=== PATIENT | female | born 1965 | race Caucasian/White ===

== ENCOUNTER 2017-05-29 07:49 | Day surgery (SDC) | payer OTHER ==
[~2017-05-29] VITALS: Ht 167.6 cm; Wt 61.4 kg
[~2017-05-29 07:49] MED LIST: Actigall300 MG PO; CITRACAL PO; CYAN500 PO; Calcium Carbon650 MG PO; ERGO400 PO; FERR325 PO; FIBE4P PO; FURO40 PO; Fergon240 M1 PO; Hair, Skin & N1 EACH PO; LACT10SY PO; LASIX PO; MULVITMIND PO; Micro-K10 MEQ PO; OMEP20ER PO; ONDA4ODT SL; Omeprazole20 M1 PO; RANI150 PO; RIFA300 PO; RIFA550T2 PO; SIMV40 PO; SPIR50 PO; URSO300 PO; VIT D; VITA25000 PO; VITAMIN A10000 UNI2 SL; VITAMIN B125000 MCG PO; VITAMIN D2000 UNIT PO; VITAMIN D33000 UNIT PO; [UNRECOGNIZED DRUG - OTHER] PO
[2017-05-29] MEDS ORDERED: Ferrous Sulfat325 M2 PO (08:17)
== END 2017-05-29 09:43 | disposition home or self-care (01) ==
LOC: ORSCSDS 07:49
PROVIDERS: Internal Medicine Gastroenterology
PROC: 0D568ZZ Destruction of Stomach, Via Natural or Artificial Opening Endoscopic (ICD-10-PCS; principal; 2017-05-29 09:00)
DX: K31.819 Angiodysplasia of stomach and duodenum without bleeding (principal); K74.3 Primary biliary cirrhosis; I85.10 Secondary esophageal varices without bleeding; K76.6 Portal hypertension; K31.89 Other diseases of stomach and duodenum; D50.9 Iron deficiency anemia, unspecified; Z79.899 Other long term (current) drug therapy
CPT/HCPCS: J0330; J1980; J2405; J7120

== ENCOUNTER 2018-05-24 06:57 | Day surgery (SDC) | payer OTHER ==
[~2018-05-24 06:57] MED LIST changes: +Ferrous Sulfat325 M2 PO
[2018-05-24] MEDS ORDERED: Aldactone100 MG PO (09:05)
[2018-05-24] MEDS ORDERED: Vitamin A10000 UNIT PO (09:07)
[2018-05-24] MEDS ORDERED: ZINC PICOLINATE PO (09:08)
--- NOTE | 2018-05-24 11:10 | NUR ---
HYPOTENSION: DISCUSSED BP WITH PT. RECOMMENDED THAT SHE TALK TO HER DR RE THE DIURETICS THAT SHE IS TAKING R/T HER BP. RECOMMENDED THAT SHE MONITOR HER BP AT HOME AND TO REPORT TO HER DR.
== END 2018-05-25 13:11 | disposition home or self-care (01) ==
LOC: ATC 06:57
DX: D64.9 Anemia, unspecified (principal)
CPT/HCPCS: 36415; 36430; 86850; 86870; 86900; 86901; 86902; 86920; J7050; P9016

== ENCOUNTER 2018-10-04 00:16 | Day surgery (SDC) | payer OTHER ==
[~2018-10-04 00:16] MED LIST changes: +Aldactone100 MG PO; +Vitamin A10000 UNIT PO; +ZINC PICOLINATE PO
== END 2018-10-04 15:45 | disposition home or self-care (01) ==
LOC: ATC 00:16
PROC: 30233N1 Transfusion of Nonautologous Red Blood Cells into Peripheral Vein, Percutaneous Approach (ICD-10-PCS; principal; 2018-10-04)
DX: D50.9 Iron deficiency anemia, unspecified (principal); K74.60 Unspecified cirrhosis of liver; K73.9 Chronic hepatitis, unspecified; K21.9 Gastro-esophageal reflux disease without esophagitis; R76.0 Raised antibody titer; Z79.899 Other long term (current) drug therapy
CPT/HCPCS: 36415; 36430; 86850; 86870; 86900; 86901; 86902; 86922; J7050; P9016

== ENCOUNTER 2020-10-20 07:41 | Day surgery (SDC) | payer OTHER, MEDICARE ==
[~2020-10-20 07:41] MED LIST changes: +ALDACTONE100 M1 PO; +POTCHL20ER PO; +VITAMIN A PO; -VITAMIN D2000 UNIT PO; -Vitamin A10000 UNIT PO; +Vitamin D2000 UNIT PO; +ZOCOR20 MG PO
== END 2020-10-20 09:59 | disposition home or self-care (01) ==
LOC: ATC 07:41
DX: K74.5 Biliary cirrhosis, unspecified (principal); D50.0 Iron deficiency anemia secondary to blood loss (chronic); M81.0 Age-related osteoporosis without current pathological fracture; D61.818 Other pancytopenia; K72.90 Hepatic failure, unspecified without coma
CPT/HCPCS: 36415; 36430; 86850; 86900; 86901; 86902; 86922; J7050; P9016

== ENCOUNTER 2021-03-05 11:30 | Inpatient (IN) | payer OTHER, MEDICARE ==
[~2021-03-05] VITALS: Ht 165.1 cm; Wt 74.0 kg
[2021-03-05 12:22] LABS: BASOPHILS ABSOLUTE AUTO 0.01 K/mm3 (0.00-0.23); BASOPHILS PERCENT AUTO 0 % (0-2); EOSINOPHILS ABSOLUTE AUTO 0.22 K/mm3 (0.00-0.68); EOSINOPHILS PERCENT AUTO 8 % (0-6); IMMATURE GRAN ABSOLUTE AUTO 0.01 K/mm3 (0.00-0.10); IMMATURE GRAN PERCENT AUTO 0 % (0-1); LYMPHOCYTES ABSOLUTE AUTO 0.86 K/mm3 (0.84-5.20); LYMPHOCYTES PERCENT AUTO 31 % (21-46); MONOCYTES ABSOLUTE AUTO 0.34 K/mm3 (0.16-1.47); MONOCYTES PERCENT AUTO 12 % (4-13); Mean Corpuscular HGB 22.6 pg (26.0-34.0); Mean Corpuscular HGB Conc 26.9 g/dL (31.5-36.5); Mean Corpuscular Volume 84 fL (80-100); NEUTROPHILS ABSOLUTE AUTO 1.35 K/mm3 (1.96-9.15); NEUTROPHILS PERCENT AUTO 48 % (41-73); NRBC ABSOLUTE 0.02 K/mm3 (0.00-0.02); NRBC Auto 0.7 /100 WBC (0.0-0.2); Platelet Count 57 K/mm3 (150-400); RDW Coefficient Variation 19.2 % (11.7-14.2); RDW Standard Deviation 57.8 fL (35.1-46.3); Red Blood Cell Count 1.99 M/mm3 (3.80-5.20); White Blood Cell Count 2.79 K/mm3 (4.00-11.30)
[2021-03-05 13:00] LABS: Hematocrit 16.7 % (33.0-51.0); Hemoglobin 4.5 g/dL (11.5-16.0)
[2021-03-05 13:13] LABS: Alanine Aminotransfer (ALT/SGP 42 U/L (12-78); Albumin, Blood 1.7 g/dL (3.4-5.0); Albumin/Globulin Ratio 0.7 (0.8-1.8); Alk Phos 148 U/L (50-136); Anion Gap 7 mmol/L (6-16); Aspartate Aminotrans (AST/SGOT 57 U/L (12-37); Bilirubin, Total 2.1 mg/dL (0.1-1.0); Blood Urea Nitrogen 10 mg/dL (8-24); Bun/Creatinine Ratio 17.2 (12.0-20.0); CO2, Blood 23 mmol/L (21-32); Calcium, Blood 7.1 mg/dL (8.5-10.1); Chloride, Blood 111 mmol/L (98-108); Creatinine, Blood 0.58 mg/dL (0.40-1.00); Globulin, Blood 2.6 g/dL (2.2-4.0); Glomerular Filtration Rate >60 (60-); Glucose, Blood 116 mg/dL (70-99); Potassium, Blood 3.4 mmol/L (3.5-5.5); Sodium, Blood 141 mmol/L (136-145); Total Protein, Blood 4.3 g/dL (6.4-8.2)
[2021-03-05 13:56] LABS: International Normalized Ratio 1.72; Prothrombin Time Results 17.4 Sec (9.7-11.5)
--- NOTE | 2021-03-06 05:07 | NUR ---
SHIFT SUMMARY PT ADMITTED FROM ED FOR SEVERE ANEMIA RELATED TO A POSSIBLE GI BLEED WITH VARICES. PT HAS A HX OF A HEPATIC RELATED AUTOIMMUNE DISEASE AND IS ON THE LIVER TRANSPLAANT LIST. SHE RECEIVED 3 UNITS OF PRBC'S THIS SHIFT, WHICH SHE TOLERATED WELL. PT TO HAVE AN EGD TODAY AT AROUND 11. VSS. WILL REPORT TO DAY SHIFT RN.
[2021-03-06 05:27] LABS: Anion Gap 7 mmol/L (6-16); Blood Urea Nitrogen 9 mg/dL (8-24); Bun/Creatinine Ratio 15.5 (12.0-20.0); CO2, Blood 21 mmol/L (21-32); Calcium, Blood 6.9 mg/dL (8.5-10.1); Chloride, Blood 115 mmol/L (98-108); Creatinine, Blood 0.58 mg/dL (0.40-1.00); Glomerular Filtration Rate >60 (60-); Glucose, Blood 105 mg/dL (70-99); Magnesium, Blood 1.7 mg/dL (1.6-2.4); Potassium, Blood 4.4 mmol/L (3.5-5.5); Sodium, Blood 143 mmol/L (136-145)
[2021-03-06 06:19] LABS: BASOPHILS ABSOLUTE AUTO 0.04 K/mm3 (0.00-0.23); BASOPHILS PERCENT AUTO 1 % (0-2); EOSINOPHILS ABSOLUTE AUTO 0.28 K/mm3 (0.00-0.68); EOSINOPHILS PERCENT AUTO 8 % (0-6); Hemoglobin 8.6 g/dL (11.5-16.0); IMMATURE GRAN ABSOLUTE AUTO 0.01 K/mm3 (0.00-0.10); IMMATURE GRAN PERCENT AUTO 0 % (0-1); LYMPHOCYTES ABSOLUTE AUTO 0.89 K/mm3 (0.84-5.20); LYMPHOCYTES PERCENT AUTO 26 % (21-46); MONOCYTES ABSOLUTE AUTO 0.45 K/mm3 (0.16-1.47); MONOCYTES PERCENT AUTO 13 % (4-13); Mean Corpuscular HGB 26.1 pg (26.0-34.0); Mean Corpuscular HGB Conc 31.9 g/dL (31.5-36.5); Mean Corpuscular Volume 82 fL (80-100); NEUTROPHILS ABSOLUTE AUTO 1.72 K/mm3 (1.96-9.15); NEUTROPHILS PERCENT AUTO 51 % (41-73); RDW Coefficient Variation 16.7 % (11.7-14.2); RDW Standard Deviation 49.1 fL (35.1-46.3); White Blood Cell Count 3.39 K/mm3 (4.00-11.30)
[2021-03-06 06:39] LABS: Platelet Count 50 K/mm3 (150-400)
[2021-03-06 07:32] LABS: Influenza A, PCR NEGATIVE (NEGATIVE); Influenza B, PCR NEGATIVE (NEGATIVE); Resp Syncytial Virus, PCR NEGATIVE (NEGATIVE); SARS-Cov-2 (COVID-19) PCR, MMC NEGATIVE (NEGATIVE)
--- NOTE | 2021-03-06 10:18 | NUR ---
INTO [facility] VIA GURNEY FROM [facility]. History, Chart, Medications and Allergies reviewed before start of procedure.Patient confirms NPO status and agrees with scheduled surgery. Lungs clear T/O to Auscultation.
--- NOTE | 2021-03-06 10:29 | NUR ---
03/06/21 1029 Laurel Muñoz History, Chart, Medications and Allergies reviewed before start of procedure. Patient confirms NPO status and agrees with scheduled surgery. 3-LEAD EKG REVIEWED WITH PHYSICIAN PRIOR TO START OF PROCEDURE. MONITOR INTACT WITH CONTINUOUS PULSE OXIMETRY AND INTERMITTENT BP. PATIENT DETERMINED TO BE ASA APPROPRIATE FOR PROPOFOL SEDATION PRIOR TO START OF PROCEDURE BY
--- NOTE | 2021-03-06 15:02 | NUR ---
SHIFT SUMMARY PT RESTING QUIETLY AT START OF SHIFT. NPO FOR UPPER EGD THIS AM. PT UP WITH SBA TO BTHRM D/T IV PUMP PRIOR TO PROCEDURE. PT REPORTED BM WITH NO BLOOD IN STOOL. 0945 PT TAKEN DOWN FOR EGD. TOLERATED WELL. NEW ORDERS PLACE WHEN COMPLETE. DIET ADVANCED TO FULL LIQUID FOR DINNER. TOLERATED CL LUNCH. SANDOSTATIN D/C'D AFTER EGD. PT TO F/U WITH DR PENALOZA OUTPT IN ONE MONTH. PT NOW INDEPENDENT IN . VISITOR TO AFTER PROCEDURE. PT RESTING QUIETLY. CALL LT IN REACH. NO FURTHER NEEDS AT THIS TIME.
[2021-03-06 16:08] LABS: BASOPHILS ABSOLUTE AUTO 0.04 K/mm3 (0.00-0.23); BASOPHILS PERCENT AUTO 1 % (0-2); EOSINOPHILS ABSOLUTE AUTO 0.27 K/mm3 (0.00-0.68); EOSINOPHILS PERCENT AUTO 6 % (0-6); Hematocrit 33.4 % (33.0-51.0); Hemoglobin 10.2 g/dL (11.5-16.0); IMMATURE GRAN ABSOLUTE AUTO 0.02 K/mm3 (0.00-0.10); IMMATURE GRAN PERCENT AUTO 0 % (0-1); LYMPHOCYTES ABSOLUTE AUTO 0.97 K/mm3 (0.84-5.20); LYMPHOCYTES PERCENT AUTO 21 % (21-46); MONOCYTES PERCENT AUTO 11 % (4-13); Mean Corpuscular HGB 25.8 pg (26.0-34.0); Mean Corpuscular HGB Conc 30.5 g/dL (31.5-36.5); Mean Corpuscular Volume 84 fL (80-100); NEUTROPHILS ABSOLUTE AUTO 2.79 K/mm3 (1.96-9.15); NEUTROPHILS PERCENT AUTO 61 % (41-73); NRBC ABSOLUTE 0.02 K/mm3 (0.00-0.02); NRBC Auto 0.4 /100 WBC (0.0-0.2); Platelet Count 61 K/mm3 (150-400); RDW Coefficient Variation 17.2 % (11.7-14.2); RDW Standard Deviation 52.5 fL (35.1-46.3); Red Blood Cell Count 3.96 M/mm3 (3.80-5.20); White Blood Cell Count 4.59 K/mm3 (4.00-11.30)
[2021-03-06] MEDS ORDERED: SUCRALFATE PO (16:57)
--- NOTE | 2021-03-06 18:01 | NUR ---
DR TATE RETURNED TO SEE PT AND REPORT PT CLEAR FOR D/C. ORDERS PLACED. MEDS FAXED TO [facility]. D/C INSTRUCTIONS REVIEWED WITH PT AND ; VERBALIZED UNDERSTANDING. PT ASSISTED OUT TO HUSBANDS CAR VIA W/C.
== END 2021-03-06 17:33 | disposition home or self-care (01) | DRG 378 ==
LOC: ER 11:30 → ERHOLD 11:31 → MEDS 11:31
PROVIDERS: Emergency Medicine; Internal Medicine Gastroenterology; Physician Assistant; ADMIT Internal Medicine
PROC: 30233N1 Transfusion of Nonautologous Red Blood Cells into Peripheral Vein, Percutaneous Approach (ICD-10-PCS; 2021-03-06)
PROC: 0W3P8ZZ Control Bleeding in Gastrointestinal Tract, Via Natural or Artificial Opening Endoscopic (ICD-10-PCS; principal; 2021-03-06 10:30)
DX: K31.811 Angiodysplasia of stomach and duodenum with bleeding (principal); D61.818 Other pancytopenia; K74.60 Unspecified cirrhosis of liver; D50.0 Iron deficiency anemia secondary to blood loss (chronic); K74.5 Biliary cirrhosis, unspecified; Z20.822 Contact with and (suspected) exposure to COVID-19; E87.6 Hypokalemia; E78.5 Hyperlipidemia, unspecified; E83.110 Hereditary hemochromatosis; Z88.8 Allergy status to other drugs, medicaments and biological substances; Z90.710 Acquired absence of both cervix and uterus; Z98.51 Tubal ligation status; Z90.49 Acquired absence of other specified parts of digestive tract; Z98.890 Other specified postprocedural states; Z79.899 Other long term (current) drug therapy
CPT/HCPCS: 0241U; 36415; 36430; 76700; 80048; 80053; 82140; 82330; 83735; 85025; 85610; 86850; 86900; 86901; 86902; 86922; 93005; 93010; 96365; 96366; 96375; 99285-25; A9270; C9113; G0378; J0610; J2354; J2704; J7030; J7050; J7120; P9016

== ENCOUNTER 2021-04-26 13:34 | Day surgery (SDC) | payer OTHER, MEDICARE ==
[~2021-04-26] VITALS: Ht 165.1 cm; Wt 66.8 kg
[~2021-04-26 13:34] MED LIST changes: +SUCRALFATE PO
== END 2021-04-26 15:26 | disposition home or self-care (01) ==
LOC: ORSCSDS 13:34
PROVIDERS: Internal Medicine Gastroenterology
PROC: 0W3P8ZZ Control Bleeding in Gastrointestinal Tract, Via Natural or Artificial Opening Endoscopic (ICD-10-PCS; principal; 2021-04-26 14:45)
DX: D50.9 Iron deficiency anemia, unspecified (principal); K31.811 Angiodysplasia of stomach and duodenum with bleeding; K74.60 Unspecified cirrhosis of liver; D64.9 Anemia, unspecified; Z79.899 Other long term (current) drug therapy
CPT/HCPCS: J2704; J7120

== ENCOUNTER 2021-06-07 10:47 | Day surgery (SDC) | payer OTHER, MEDICARE ==
[~2021-06-07] VITALS: Ht 165.1 cm; Wt 66.6 kg
== END 2021-06-07 13:05 | disposition home or self-care (01) ==
LOC: ORSCSDS 10:47
PROVIDERS: Internal Medicine Gastroenterology
PROC: 0W3P8ZZ Control Bleeding in Gastrointestinal Tract, Via Natural or Artificial Opening Endoscopic (ICD-10-PCS; principal; 2021-06-07 12:00)
DX: D50.9 Iron deficiency anemia, unspecified (principal); K31.819 Angiodysplasia of stomach and duodenum without bleeding; K74.60 Unspecified cirrhosis of liver; Z79.899 Other long term (current) drug therapy
CPT/HCPCS: J2704; J7120

== ENCOUNTER 2021-06-18 06:39 | Day surgery (SDC) | payer OTHER, MEDICARE ==
[~2021-06-18] VITALS: Ht 165.1 cm; Wt 68.0 kg
--- NOTE | 2021-06-18 12:15 | NUR ---
PATIENT VEBALIZED UNDERSTANDING OF DISCHARGE INSTRUCTIONS AND PRECAUTIONS. IV SITE DCED BY YULISSA JOHNSON RN. TR BAND REMOVED AND WRIST BOARD PLACED. SITE SOFT AND NONTENDER. NO HEMATOMA. NO BLEEDING. RIGHT VENOUS DRESSING UNCHANGED AND SITE STABLE. DRESSING CHANGED BY TREMAYNE JOHNSON RN. NO FURTHER QUESTIONS. PATIENT DISCHARGED BY YULISSA HERNÁNDEZ.
== END 2021-06-18 12:00 | disposition home or self-care (01) ==
LOC: MHTC 06:39
DX: I27.20 Pulmonary hypertension, unspecified (principal); R01.0 Benign and innocent cardiac murmurs; I20.9 Angina pectoris, unspecified; Z88.8 Allergy status to other drugs, medicaments and biological substances
CPT/HCPCS: 76937; 93456; 99152; 99153; C1769; C1887; C1894; J1644; J2250; J3010; J7030; J7050; Q9967

== ENCOUNTER 2021-08-13 09:43 | Day surgery (SDC) | payer OTHER, MEDICARE ==
[~2021-08-13] VITALS: Ht 165.1 cm; Wt 65.0 kg
[2021-08-13] MEDS ORDERED: FURO40 PO (10:06)
[2021-08-13] MEDS ORDERED: SPIR50 PO (10:07)
[2021-08-13] MEDS ORDERED: SILDENAFIL CITR20 MG PO (10:08)
--- NOTE | 2021-08-13 10:50 | NUR ---
Ambulatory in Day Surgery History, Chart, Medications and Allergies reviewed before start of procedure. Pre-Op teaching done. Pt verbalizes understanding. Patient States Post-Procedure ride home has been arranged.
--- NOTE | 2021-08-13 10:53 | NUR ---
08/13/21 1053 Norma Luciano History, Chart, Medications and Allergies reviewed before start of procedure. LIDOCAINE SPRAY 2% TO THROAT PRIOR TO PROCEDURE CONNER RAMIREZ PROVIDING ANESTHESIA,SEE RECORDS
--- NOTE | 2021-08-13 12:59 | NUR ---
Patient up to Ambulate independently. Gait steady. Discharge instructions reviewed with patient. Patient verbalizes understanding. Copy given to patient to take home. Patient States Post-Procedure ride home has been arranged. Discharged via wheelchair to private car for ride home. ALL BELONGINGS RETURNED TO PATIENT.
== END 2021-08-13 23:25 | disposition home or self-care (01) ==
LOC: ORSCMMR 09:43 → ORD 10:45 → ORSCMMR 23:25
PROVIDERS: Internal Medicine Gastroenterology
PROC: 0W3P8ZZ Control Bleeding in Gastrointestinal Tract, Via Natural or Artificial Opening Endoscopic (ICD-10-PCS; principal; 2021-08-13 10:45)
DX: K31.811 Angiodysplasia of stomach and duodenum with bleeding (principal); K74.3 Primary biliary cirrhosis; D62 Acute posthemorrhagic anemia; I27.20 Pulmonary hypertension, unspecified; K21.9 Gastro-esophageal reflux disease without esophagitis; Z79.899 Other long term (current) drug therapy
CPT/HCPCS: J2370; J2704; J3010; J7120

== ENCOUNTER 2021-11-02 14:03 | Day surgery (SDC) | payer OTHER, MEDICARE ==
[2021-11-01 08:42] LABS: BASOPHILS ABSOLUTE AUTO 0.01 K/mm3 (0.00-0.23); BASOPHILS PERCENT AUTO 0 % (0-2); EOSINOPHILS ABSOLUTE AUTO 0.15 K/mm3 (0.00-0.68); EOSINOPHILS PERCENT AUTO 7 % (0-6); Hematocrit 26.3 % (33.0-51.0); Hemoglobin 7.8 g/dL (11.5-16.0); IMMATURE GRAN PERCENT AUTO 0 % (0-1); LYMPHOCYTES ABSOLUTE AUTO 0.58 K/mm3 (0.84-5.20); LYMPHOCYTES PERCENT AUTO 25 % (21-46); MONOCYTES ABSOLUTE AUTO 0.29 K/mm3 (0.16-1.47); MONOCYTES PERCENT AUTO 13 % (4-13); Mean Corpuscular HGB 25.1 pg (26.0-34.0); Mean Corpuscular HGB Conc 29.7 g/dL (31.5-36.5); Mean Corpuscular Volume 85 fL (80-100); NEUTROPHILS ABSOLUTE AUTO 1.27 K/mm3 (1.96-9.15); NEUTROPHILS PERCENT AUTO 55 % (41-73); Platelet Count 78 K/mm3 (150-400); RDW Coefficient Variation 19.3 % (11.7-14.2); RDW Standard Deviation 59.3 fL (35.1-46.3); Red Blood Cell Count 3.11 M/mm3 (3.80-5.20)
[2021-11-01 08:55] LABS: Albumin, Blood 2.4 g/dL (3.4-5.0); Albumin/Globulin Ratio 0.9 (0.8-1.8); Bilirubin, Total 2.7 mg/dL (0.1-1.0); Bun/Creatinine Ratio 20.2 (12.0-20.0); Creatinine, Blood 0.64 mg/dL (0.40-1.00); Globulin, Blood 2.8 g/dL (2.2-4.0); Total Protein, Blood 5.2 g/dL (6.4-8.2)
[2021-11-01 09:19] LABS: Percent Saturation 13.2 % (15.0-50.0)
[2021-11-01 09:39] LABS: International Normalized Ratio 1.46
[~2021-11-02 14:03] MED LIST changes: +SILDENAFIL CITR20 MG PO
== END 2021-11-02 16:13 | disposition home or self-care (01) ==
LOC: ATC 14:03
PROVIDERS: Internal Medicine; Registered Nurse Oncology
DX: K74.3 Primary biliary cirrhosis (principal); Z88.8 Allergy status to other drugs, medicaments and biological substances; Z86.16 Personal history of COVID-19
CPT/HCPCS: 36415; 80053; 82105; 82728; 83540; 83550; 85025; 85610; 86850; 86900; 86901; 86902; 86920; J7040; P9016

== ENCOUNTER 2021-11-03 12:39 | Day surgery (SDC) | payer OTHER, MEDICARE ==
[~2021-11-03] VITALS: Ht 165.1 cm; Wt 66.7 kg
--- NOTE | 2021-11-03 13:27 | NUR ---
11/03/21 1327 Marcella Mcdonald TWO ATTEMPTS AT IV. FIRST ATTEMPT AT IV BY MA IN RIGHT HAND INFILTRATED. SECOND ATTEMPT AT IV BY RN IN LEFT HAND SUCCESSFUL.
== END 2021-11-03 14:13 | disposition home or self-care (01) ==
LOC: ORSCSDS 12:39
PROVIDERS: Internal Medicine Gastroenterology
PROC: 0D578ZZ Destruction of Stomach, Pylorus, Via Natural or Artificial Opening Endoscopic (ICD-10-PCS; principal; 2021-11-03 13:45)
DX: K74.3 Primary biliary cirrhosis (principal); D50.0 Iron deficiency anemia secondary to blood loss (chronic); K31.811 Angiodysplasia of stomach and duodenum with bleeding; K76.6 Portal hypertension; K31.89 Other diseases of stomach and duodenum; I67.4 Hypertensive encephalopathy; R18.8 Other ascites; Z79.899 Other long term (current) drug therapy
CPT/HCPCS: J2704; J7120

== ENCOUNTER 2022-02-21 11:22 | Inpatient (IN) | payer OTHER, MEDICARE ==
[~2022-02-21] VITALS: Ht 165.1 cm; Wt 74.1 kg
[~2022-02-21 11:22] MED LIST changes: +FURO20 PO; -Omeprazole20 M1 PO; +VITAMIN D5000 UNIT PO; -Vitamin D2000 UNIT PO; -ZOCOR20 MG PO; +Zocor40 MG PO
[2022-02-21 12:15] LABS: BASOPHILS ABSOLUTE AUTO 0.03 K/mm3 (0.00-0.23); BASOPHILS PERCENT AUTO 1 % (0-2); EOSINOPHILS ABSOLUTE AUTO 0.07 K/mm3 (0.00-0.68); EOSINOPHILS PERCENT AUTO 1 % (0-6); Hematocrit 21.7 % (33.0-51.0); Hemoglobin 6.6 g/dL (11.5-16.0); IMMATURE GRAN ABSOLUTE AUTO 0.01 K/mm3 (0.00-0.10); IMMATURE GRAN PERCENT AUTO 0 % (0-1); LYMPHOCYTES ABSOLUTE AUTO 0.62 K/mm3 (0.84-5.20); LYMPHOCYTES PERCENT AUTO 11 % (21-46); MONOCYTES ABSOLUTE AUTO 0.68 K/mm3 (0.16-1.47); MONOCYTES PERCENT AUTO 12 % (4-13); Mean Corpuscular HGB Conc 30.4 g/dL (31.5-36.5); Mean Corpuscular Volume 82 fL (80-100); NEUTROPHILS ABSOLUTE AUTO 4.35 K/mm3 (1.96-9.15); NEUTROPHILS PERCENT AUTO 76 % (41-73); Platelet Count 98 K/mm3 (150-400); Red Blood Cell Count 2.64 M/mm3 (3.80-5.20); White Blood Cell Count 5.76 K/mm3 (4.00-11.30)
[2022-02-21 12:20] LABS: Mean Platelet Volume 12.5 fL (9.1-12.4)
[2022-02-21 12:33] LABS: Albumin, Blood 1.9 g/dL (3.4-5.0); Albumin/Globulin Ratio 0.7 (0.8-1.8); Bilirubin, Total 4.7 mg/dL (0.1-1.0); Bun/Creatinine Ratio 22.5 (12.0-20.0); Calcium, Blood 7.3 mg/dL (8.5-10.1); Creatinine, Blood 0.8 mg/dL (0.40-1.00); Globulin, Blood 2.6 g/dL (2.2-4.0); Total Protein, Blood 4.5 g/dL (6.4-8.2)
[2022-02-21 13:42] LABS: International Normalized Ratio 1.46
[2022-02-21] MEDS ORDERED: HYDHCL25 PO (20:55)
[2022-02-21] MEDS ORDERED: OPSUMIT10 MG PO (20:56)
--- NOTE | 2022-02-21 22:33 | NUR ---
ADMIT NOTE HANDOFF RECEIVED FROM LIBRARY ACQUISITIONS TECHNICIAN SILVIA. PT ARRIVED TO FLOOR VIA GURNEY. TELEMETRY IN PLACE: NSR @ 71 BPM. HS MEDICATION GIVEN ORDERED. PT ORIENTED TO UNIT. CALL BUTTON WITHIN REACH. STRICT I&O'S. STANDING ACCURATE WEIGHT TAKEN ON ADMIT. CALLED HOSPITALIST TO INFORM HIM OF HYPOTENSION. 1800 LASIX RX HELD PER HOSPITALIST ORDER.
--- NOTE | 2022-02-22 04:28 | NUR ---
SHIFT SUMMARY ADMITTED FOR ACUTE ON CHRONIC CHF. DNR CODE. PLAN IS TO DIURESE. TELEMETRY: NSR @ 80 BPM. STRICT I&O'S. 3+ BLE EDEMA NOTED. HYPOTENSION NOTED, SEE PREVIOUS NOTE. HX: CIRRHOSIS, PULMONARY HTN, ESOPHAGEAL VARICES, ASCITES, HEMOCHROMOTOSIS, IRON DEFICIENCY. SHE IS INDEPENDENT IN ROOM. SHE IS ON RA. SHE IS A&O X4
[2022-02-22 05:04] LABS: BASOPHILS ABSOLUTE AUTO 0.01 K/mm3 (0.00-0.23); BASOPHILS PERCENT AUTO 0 % (0-2); EOSINOPHILS ABSOLUTE AUTO 0.07 K/mm3 (0.00-0.68); EOSINOPHILS PERCENT AUTO 2 % (0-6); Hematocrit 19.9 % (33.0-51.0); Hemoglobin 6.2 g/dL (11.5-16.0); IMMATURE GRAN ABSOLUTE AUTO 0.02 K/mm3 (0.00-0.10); IMMATURE GRAN PERCENT AUTO 1 % (0-1); LYMPHOCYTES PERCENT AUTO 18 % (21-46); MONOCYTES ABSOLUTE AUTO 0.52 K/mm3 (0.16-1.47); MONOCYTES PERCENT AUTO 13 % (4-13); Mean Corpuscular HGB 25.5 pg (26.0-34.0); Mean Corpuscular HGB Conc 31.2 g/dL (31.5-36.5); Mean Corpuscular Volume 82 fL (80-100); NEUTROPHILS ABSOLUTE AUTO 2.61 K/mm3 (1.96-9.15); NEUTROPHILS PERCENT AUTO 66 % (41-73); NRBC ABSOLUTE 0.02 K/mm3 (0.00-0.02); NRBC Auto 0.5 /100 WBC (0.0-0.2); Platelet Count 66 K/mm3 (150-400); RDW Coefficient Variation 21.3 % (11.7-14.2); RDW Standard Deviation 63.6 fL (35.1-46.3); Red Blood Cell Count 2.43 M/mm3 (3.80-5.20); White Blood Cell Count 3.93 K/mm3 (4.00-11.30)
[2022-02-22 05:27] LABS: Albumin, Blood 1.5 g/dL (3.4-5.0); Albumin/Globulin Ratio 0.7 (0.8-1.8); Bilirubin, Total 5.1 mg/dL (0.1-1.0); Bun/Creatinine Ratio 22.5 (12.0-20.0); Calcium, Blood 7.1 mg/dL (8.5-10.1); Creatinine, Blood 0.8 mg/dL (0.40-1.00); Globulin, Blood 2.1 g/dL (2.2-4.0); Total Protein, Blood 3.6 g/dL (6.4-8.2)
--- NOTE | 2022-02-22 06:29 | NUR ---
CALLED HOSPITALIST INFORMED HER OF HGB OF 6.2. SEE NEW ORDERS IN [facility]
--- NOTE | 2022-02-22 14:11 | NUR ---
Upon receiving a referral for spiritual care, I visit pt. Pt is lying in bed and alert. Pt's spouse, Mike is bedisde. They explain about pt's medical history and the big wins and loses. Pt expresses the emotional pain and internal struggle as well as the amazing support of her family, friends and bahai (Pt attends [employer]). She states that the set backs have taken her momentum at times but she continues to try to stay positive. I normalize her feelings, encourage self-care, reinforce helpful attitudes and practices and provide theraputic listening and prayer. Pt and Mike respond well and show signs of being encouraged in their anaid. I will continue to remain available to patient and family.
[2022-02-22 16:19] LABS: Hematocrit 25.1 % (33.0-51.0); Hemoglobin 7.9 g/dL (11.5-16.0)
--- NOTE | 2022-02-23 05:12 | NUR ---
SHIFT SUMMARY 55 YR F ADMITTED FOR PULMONARY PORTAL HYPERTENTION. DNR. NO ACUTE CHANGES THIS SHIFT. PT IS INDEPENDANT IN THE ROOM AND STATES THAT SHE FEELS FINE AND IS NOT HAVING PAIN. SHE IS PLEASANT AND COOPERATIVE WITH CARE. SHE SLEPT COMFORTABLY THROUGH MOST OF THE NIGHT W/O CALLING FOR ASSISTANCE.
[2022-02-23 05:56] LABS: BASOPHILS ABSOLUTE AUTO 0.03 K/mm3 (0.00-0.23); BASOPHILS PERCENT AUTO 1 % (0-2); EOSINOPHILS PERCENT AUTO 2 % (0-6); Hematocrit 23.5 % (33.0-51.0); Hemoglobin 7.5 g/dL (11.5-16.0); IMMATURE GRAN ABSOLUTE AUTO 0.02 K/mm3 (0.00-0.10); IMMATURE GRAN PERCENT AUTO 0 % (0-1); LYMPHOCYTES ABSOLUTE AUTO 0.74 K/mm3 (0.84-5.20); LYMPHOCYTES PERCENT AUTO 16 % (21-46); MONOCYTES ABSOLUTE AUTO 0.38 K/mm3 (0.16-1.47); MONOCYTES PERCENT AUTO 8 % (4-13); Mean Corpuscular HGB 26.1 pg (26.0-34.0); Mean Corpuscular HGB Conc 31.9 g/dL (31.5-36.5); Mean Corpuscular Volume 82 fL (80-100); NEUTROPHILS ABSOLUTE AUTO 3.26 K/mm3 (1.96-9.15); NEUTROPHILS PERCENT AUTO 72 % (41-73); Platelet Count 70 K/mm3 (150-400); RDW Coefficient Variation 21.1 % (11.7-14.2); RDW Standard Deviation 61.7 fL (35.1-46.3); Red Blood Cell Count 2.87 M/mm3 (3.80-5.20); White Blood Cell Count 4.53 K/mm3 (4.00-11.30)
[2022-02-23 06:25] LABS: Albumin, Blood 1.6 g/dL (3.4-5.0); Albumin/Globulin Ratio 0.7 (0.8-1.8); Bilirubin, Total 5.7 mg/dL (0.1-1.0); Bun/Creatinine Ratio 23.8 (12.0-20.0); Calcium, Blood 7.2 mg/dL (8.5-10.1); Creatinine, Blood 0.71 mg/dL (0.40-1.00); Globulin, Blood 2.3 g/dL (2.2-4.0); Total Protein, Blood 3.9 g/dL (6.4-8.2)
--- NOTE | 2022-02-23 16:29 | NUR ---
SHIFT SUMMARY- PT CHEERFUL AND COMPLIANT WITH ALL CARE. B/P SOFT, REPORTED TO , PT HAS HISTORY OF LOW B/P DURING STAY. LOW B/P DOES NOT AFFECT MENTATION OR MOOD. FAMILY AT BED SIDE. GREAT APPETITE. NO C/O OF PAIN DURING THIS SHIFT. INDEPENDANT IN ROOM. CALL LIGHT IN REACH. WILL CONTINUE TO MOONITOR.
--- NOTE | 2022-02-23 18:40 | NUR ---
transfered pt from [facility] to 330. all belongings moved. pt notified .
--- NOTE | 2022-02-24 03:26 | NUR ---
Patient resting in room, no complaints of pain or discomfort.
[2022-02-24 06:14] LABS: BASOPHILS ABSOLUTE AUTO 0.02 K/mm3 (0.00-0.23); BASOPHILS PERCENT AUTO 1 % (0-2); EOSINOPHILS ABSOLUTE AUTO 0.18 K/mm3 (0.00-0.68); EOSINOPHILS PERCENT AUTO 4 % (0-6); Hematocrit 24.9 % (33.0-51.0); Hemoglobin 7.7 g/dL (11.5-16.0); IMMATURE GRAN ABSOLUTE AUTO 0.02 K/mm3 (0.00-0.10); IMMATURE GRAN PERCENT AUTO 1 % (0-1); LYMPHOCYTES ABSOLUTE AUTO 0.66 K/mm3 (0.84-5.20); LYMPHOCYTES PERCENT AUTO 15 % (21-46); MONOCYTES ABSOLUTE AUTO 0.45 K/mm3 (0.16-1.47); MONOCYTES PERCENT AUTO 10 % (4-13); Mean Corpuscular HGB 25.9 pg (26.0-34.0); Mean Corpuscular HGB Conc 30.9 g/dL (31.5-36.5); Mean Corpuscular Volume 84 fL (80-100); NEUTROPHILS PERCENT AUTO 70 % (41-73); Platelet Count 64 K/mm3 (150-400); RDW Coefficient Variation 21.4 % (11.7-14.2); RDW Standard Deviation 63.8 fL (35.1-46.3); Red Blood Cell Count 2.97 M/mm3 (3.80-5.20); White Blood Cell Count 4.43 K/mm3 (4.00-11.30)
[2022-02-24 06:35] LABS: Albumin, Blood 1.6 g/dL (3.4-5.0); Albumin/Globulin Ratio 0.7 (0.8-1.8); Bilirubin, Total 4.1 mg/dL (0.1-1.0); Calcium, Blood 7.5 mg/dL (8.5-10.1); Creatinine, Blood 0.72 mg/dL (0.40-1.00); Globulin, Blood 2.4 g/dL (2.2-4.0); Potassium, Blood 4.2 mmol/L (3.5-5.5)
[2022-02-24 08:44] LABS: International Normalized Ratio 1.54; Prothrombin Time Results 15.7 Sec (9.7-11.5)
--- NOTE | 2022-02-24 15:03 | NUR ---
SHIFT SUMMARY NO ACUTE CHANGES TO PRESENT THIS SHIFT. PT IS A&O, PLEASANT AND CO-OP. INDEPENDENT IN RM. DIURESSING WITH STRICT I&O'S. LRG AMT OF URINE OUTPUT AGAIN TODAY. SR ON TELE. NO C/O. TO RM THIS AM AND OFF AND ON TODAY. RESTING QUIETLY READING A BOOK AT THIS TIME. DENIED FURTHER NEEDS. CALL LT IN REACH.
--- NOTE | 2022-02-25 05:33 | NUR ---
CAREER CONSULTANT SUMMARY: A&Ox4. PLEASANT AND COOPERATIVE WITH CARE. CALLS APPROPRIATELY AND COMMUNICATES NEEDS EFFECTIVELY. NO ACUTE CONCERNS. SLEPT T/O NIGHT. TELE SINUS @ 93bpm. WILL REPORT TO ONCOMING RN.
[2022-02-25 05:51] LABS: BASOPHILS ABSOLUTE AUTO 0.01 K/mm3 (0.00-0.23); BASOPHILS PERCENT AUTO 0 % (0-2); EOSINOPHILS ABSOLUTE AUTO 0.07 K/mm3 (0.00-0.68); EOSINOPHILS PERCENT AUTO 2 % (0-6); Hematocrit 23.7 % (33.0-51.0); Hemoglobin 7.4 g/dL (11.5-16.0); IMMATURE GRAN PERCENT AUTO 0 % (0-1); LYMPHOCYTES ABSOLUTE AUTO 0.41 K/mm3 (0.84-5.20); LYMPHOCYTES PERCENT AUTO 14 % (21-46); MONOCYTES ABSOLUTE AUTO 0.33 K/mm3 (0.16-1.47); MONOCYTES PERCENT AUTO 11 % (4-13); Mean Corpuscular HGB 26.2 pg (26.0-34.0); Mean Corpuscular HGB Conc 31.2 g/dL (31.5-36.5); Mean Corpuscular Volume 84 fL (80-100); NEUTROPHILS ABSOLUTE AUTO 2.08 K/mm3 (1.96-9.15); NEUTROPHILS PERCENT AUTO 72 % (41-73); Platelet Count 54 K/mm3 (150-400); RDW Coefficient Variation 22.2 % (11.7-14.2); Red Blood Cell Count 2.82 M/mm3 (3.80-5.20)
[2022-02-25 06:12] LABS: Albumin, Blood 1.6 g/dL (3.4-5.0); Albumin/Globulin Ratio 0.7 (0.8-1.8); Bilirubin, Total 3.6 mg/dL (0.1-1.0); Bun/Creatinine Ratio 25.3 (12.0-20.0); Calcium, Blood 7.5 mg/dL (8.5-10.1); Creatinine, Blood 0.67 mg/dL (0.40-1.00); Globulin, Blood 2.2 g/dL (2.2-4.0); Potassium, Blood 4.3 mmol/L (3.5-5.5); Total Protein, Blood 3.8 g/dL (6.4-8.2)
--- NOTE | 2022-02-25 16:17 | NUR ---
PT AWAKE AT START OF SHIFT. INDEPENDENT IN RM AND TO BTHRM. PT'S IN RM EARLY AT BS. NO ACUTE CHANGES TO REPORT. DR MARTIN IN TO SEE PT AND DISCUSS PLAN OF CARE. PT TO D/C TO HOME. NO NEW MEDICATIONS ORDERED. D/C INSTRUCTIONS REVIEWED WITH PT AND ; VERBALIZED UNDERSTANDING. IV SITES D/C'D WNL'S. PT ASSISTED OUT TO CAR VIA W/C WITH AT SIDE.
== END 2022-02-25 15:29 | disposition home or self-care (01) | DRG 292 ==
LOC: ER 11:22 → ERHOLD 16:26 → MEDS 19:56
PROVIDERS: Physician Assistant; Student in an Organized Health Care Education/Training Program; ADMIT Family Medicine
PROC: 30233N1 Transfusion of Nonautologous Red Blood Cells into Peripheral Vein, Percutaneous Approach (ICD-10-PCS; principal; 2022-02-21)
DX: I11.0 Hypertensive heart disease with heart failure (principal); D61.818 Other pancytopenia; I50.813 Acute on chronic right heart failure; D50.0 Iron deficiency anemia secondary to blood loss (chronic); K31.819 Angiodysplasia of stomach and duodenum without bleeding; K74.60 Unspecified cirrhosis of liver; E78.5 Hyperlipidemia, unspecified; K74.3 Primary biliary cirrhosis; R16.1 Splenomegaly, not elsewhere classified; M85.80 Other specified disorders of bone density and structure, unspecified site; Z66 Do not resuscitate; M81.0 Age-related osteoporosis without current pathological fracture; I27.21 Secondary pulmonary arterial hypertension; K21.9 Gastro-esophageal reflux disease without esophagitis; Z98.890 Other specified postprocedural states; Z90.49 Acquired absence of other specified parts of digestive tract; Z79.01 Long term (current) use of anticoagulants; Z88.8 Allergy status to other drugs, medicaments and biological substances; Z79.899 Other long term (current) drug therapy; Z90.710 Acquired absence of both cervix and uterus; Z98.51 Tubal ligation status
CPT/HCPCS: 36415; 36430; 71046; 80053; 82248; 83690; 83735; 83880; 85014; 85018; 85025; 85610; 86850; 86900; 86901; 86902; 86922; 93005; 93010; 93975; 96365; 96366; 96375; 99285-25; A9270; J1650; J1940; J3480; J7030; J7050; P9016

== ENCOUNTER 2022-04-05 19:41 | Inpatient (IN) | payer OTHER, MEDICARE ==
[~2022-04-05] VITALS: Ht 165.1 cm; Wt 62.7 kg
[~2022-04-05 19:41] MED LIST changes: +HYDHCL25 PO; +OPSUMIT10 MG PO
[2022-04-05] MEDS ORDERED: TORS10 (20:03)
[2022-04-05 20:07] LABS: BASOPHILS ABSOLUTE AUTO 0.02 K/mm3 (0.00-0.23); BASOPHILS PERCENT AUTO 0 % (0-2); EOSINOPHILS ABSOLUTE AUTO 0.01 K/mm3 (0.00-0.68); EOSINOPHILS PERCENT AUTO 0 % (0-6); Hematocrit 22.7 % (33.0-51.0); Hemoglobin 7.2 g/dL (11.5-16.0); IMMATURE GRAN ABSOLUTE AUTO 0.05 K/mm3 (0.00-0.10); IMMATURE GRAN PERCENT AUTO 1 % (0-1); LYMPHOCYTES ABSOLUTE AUTO 0.51 K/mm3 (0.84-5.20); LYMPHOCYTES PERCENT AUTO 7 % (21-46); MONOCYTES PERCENT AUTO 13 % (4-13); Mean Corpuscular HGB 25.8 pg (26.0-34.0); Mean Corpuscular HGB Conc 31.7 g/dL (31.5-36.5); Mean Corpuscular Volume 81 fL (80-100); Mean Platelet Volume 10.9 fL (9.1-12.4); NEUTROPHILS ABSOLUTE AUTO 5.93 K/mm3 (1.96-9.15); NEUTROPHILS PERCENT AUTO 79 % (41-73); Platelet Count 73 K/mm3 (150-400); RDW Coefficient Variation 19.9 % (11.7-14.2); RDW Standard Deviation 59.7 fL (35.1-46.3); Red Blood Cell Count 2.79 M/mm3 (3.80-5.20); White Blood Cell Count 7.52 K/mm3 (4.00-11.30)
[2022-04-05 20:23] LABS: Bilirubin, Total 3.4 mg/dL (0.1-1.0); Bun/Creatinine Ratio 21.4 (12.0-20.0); Calcium, Blood 7.2 mg/dL (8.5-10.1); Creatinine, Blood 1.03 mg/dL (0.40-1.00); Globulin, Blood 2.1 g/dL (2.2-4.0); Potassium, Blood 3.9 mmol/L (3.5-5.5); Total Protein, Blood 4.1 g/dL (6.4-8.2)
[2022-04-05 23:16] LABS: International Normalized Ratio 1.64; Prothrombin Time Results 16.7 Sec (9.7-11.5)
[2022-04-06 00:14] LABS: Percent Saturation 9.8 % (15.0-50.0)
[2022-04-06] MEDS ORDERED: RIFA550T2 PO (01:41)
[2022-04-06] MEDS ORDERED: BENADRYL25 MG PO (01:44)
--- NOTE | 2022-04-06 05:15 | NUR ---
SHIFT SUMMARY PT ER ADMIT THIS SHIFT FOR LEFT HIP FRACTURE AFTER GLF IN HER HOME. PT ADMITTED UNDER HOSPITALIST SERVICE FOR MEDICAL MANAGEMENT AND ORTHO TO CONSULT IN AM. PT PAINFUL UPON ADMISSON, SHE ENDORSES 8/10 PAIN TO LEFT HIP. MEDICATED WITH DILAUDID WITH EFFECT. PT HGB 7.2 AND BP IS SOFT. PROVIDER IS AWARE AND HAS ORDERED 1 UNIT OF PRBC TO INFUSE. PAIN MANAGEMENT HAS BEEN CONSERVATIVE DUE TO LOW BLOOD PRESSURE BUT APPEARS TO BE ADEQUATE FOR PAIN CONTROL PER PT. BLOOD HAS BEEN STARTED AND PT IS TOLERATING. PT REPOSITONED PRN FOR COMFORT. PT RESTING AT THIS TIME WITHOUT COMPLAINT. NPO AT THIS TIME. BED IN LOWEST POSITION, CALL LIGHT WITHIN REACH.
[2022-04-06 08:27] LABS: BASOPHILS ABSOLUTE AUTO 0.01 K/mm3 (0.00-0.23); BASOPHILS PERCENT AUTO 0 % (0-2); EOSINOPHILS PERCENT AUTO 0 % (0-6); Hematocrit 25.3 % (33.0-51.0); Hemoglobin 8.3 g/dL (11.5-16.0); IMMATURE GRAN ABSOLUTE AUTO 0.02 K/mm3 (0.00-0.10); IMMATURE GRAN PERCENT AUTO 0 % (0-1); LYMPHOCYTES ABSOLUTE AUTO 0.59 K/mm3 (0.84-5.20); LYMPHOCYTES PERCENT AUTO 10 % (21-46); MONOCYTES ABSOLUTE AUTO 0.58 K/mm3 (0.16-1.47); MONOCYTES PERCENT AUTO 9 % (4-13); Mean Corpuscular HGB 26.2 pg (26.0-34.0); Mean Corpuscular HGB Conc 32.8 g/dL (31.5-36.5); Mean Corpuscular Volume 80 fL (80-100); Mean Platelet Volume 11.3 fL (9.1-12.4); NEUTROPHILS ABSOLUTE AUTO 5.02 K/mm3 (1.96-9.15); NEUTROPHILS PERCENT AUTO 81 % (41-73); Platelet Count 61 K/mm3 (150-400); RDW Coefficient Variation 19.4 % (11.7-14.2); RDW Standard Deviation 56.1 fL (35.1-46.3); Red Blood Cell Count 3.17 M/mm3 (3.80-5.20); White Blood Cell Count 6.22 K/mm3 (4.00-11.30)
[2022-04-06 08:44] LABS: Albumin, Blood 1.9 g/dL (3.4-5.0); Albumin/Globulin Ratio 0.9 (0.8-1.8); Bilirubin, Total 4.4 mg/dL (0.1-1.0); Bun/Creatinine Ratio 23.7 (12.0-20.0); Calcium, Blood 7.2 mg/dL (8.5-10.1); Creatinine, Blood 0.85 mg/dL (0.40-1.00); Globulin, Blood 2.2 g/dL (2.2-4.0); Potassium, Blood 4.1 mmol/L (3.5-5.5); Total Protein, Blood 4.1 g/dL (6.4-8.2)
--- NOTE | 2022-04-06 15:11 | NUR ---
Surgical site prepped with 2% Chlorhexidine cloth wipe. History, Chart, Medications and Allergies reviewed before start of procedure. Lungs clear T/O to Auscultation. Pre-Op teaching done. Pt verbalizes understanding. Patient confirms NPO status and agrees with scheduled surgery.
--- NOTE | 2022-04-06 15:39 | NUR ---
PT HERE FROM SURGICAL FLOOR. History, Chart, Medications and Allergies reviewed before start of procedure. Pre-Op teaching done. Pt verbalizes understanding.
--- NOTE | 2022-04-06 18:17 | NUR ---
SHIFT SUMMARY PT S/P LEFT HIP RODDING. PT'S BP IS LOW AFTER SURGERY AND RECEIVING BOLUS. PT ALSO IS GETTING MIDODRINE. GAUZE AND FOAM TAPE DRESSING IN PLACE AND CDI. AT THE BEDSIDE.
[2022-04-07 05:14] LABS: BASOPHILS ABSOLUTE AUTO 0.01 K/mm3 (0.00-0.23); BASOPHILS PERCENT AUTO 0 % (0-2); EOSINOPHILS PERCENT AUTO 0 % (0-6); Hematocrit 22.1 % (33.0-51.0); Hemoglobin 7.1 g/dL (11.5-16.0); IMMATURE GRAN ABSOLUTE AUTO 0.02 K/mm3 (0.00-0.10); IMMATURE GRAN PERCENT AUTO 0 % (0-1); LYMPHOCYTES ABSOLUTE AUTO 0.39 K/mm3 (0.84-5.20); LYMPHOCYTES PERCENT AUTO 5 % (21-46); MONOCYTES PERCENT AUTO 3 % (4-13); Mean Corpuscular HGB 26.3 pg (26.0-34.0); Mean Corpuscular HGB Conc 32.1 g/dL (31.5-36.5); Mean Corpuscular Volume 82 fL (80-100); Mean Platelet Volume 11.2 fL (9.1-12.4); NEUTROPHILS ABSOLUTE AUTO 7.44 K/mm3 (1.96-9.15); NEUTROPHILS PERCENT AUTO 92 % (41-73); Platelet Count 66 K/mm3 (150-400); RDW Coefficient Variation 19.9 % (11.7-14.2); RDW Standard Deviation 58.4 fL (35.1-46.3); White Blood Cell Count 8.06 K/mm3 (4.00-11.30)
--- NOTE | 2022-04-07 05:25 | NUR ---
SHIFT SUMMARY POD 0 LEFT HIP RODDING. SHE HAS DONE WELL OVERNIGHT AND HAS NO COMPLAINTS OF PAIN. PT DENIES N/T IN EXT, PEDAL PULSES STRONG, SKIN WARM AND PT ABLE TO WIGGLE TOES. BULKY DRESSING INTACT TO LEFT HIP. PT HYPOTENSIVE AND SBP TRENDING IN THE 90'S WHERE SHE HAS BEEN MOST OF HER ADMISSION, PROVIDERS ARE AWARE. PT REPORTS THAT SHE IS CHRONICALLY HYPOTENSIVE, PT HAS BEEN ASYMPTOMATIC. NO ACUTE CHANGES OVERNIGHT. BED IN LOWEST POSITION, CALL LIGHT WITHIN REACH.
[2022-04-07 05:46] LABS: Magnesium, Blood 2.1 mg/dL (1.6-2.4)
[2022-04-07 05:50] LABS: Albumin, Blood 1.8 g/dL (3.4-5.0); Albumin/Globulin Ratio 0.9 (0.8-1.8); Bilirubin, Total 4.1 mg/dL (0.1-1.0); Bun/Creatinine Ratio 28.4 (12.0-20.0); Calcium, Blood 7.4 mg/dL (8.5-10.1); Creatinine, Blood 0.85 mg/dL (0.40-1.00); Globulin, Blood 2.1 g/dL (2.2-4.0); Phosphorus, Blood 2.4 mg/dL (2.5-4.9); Total Protein, Blood 3.9 g/dL (6.4-8.2)
--- NOTE | 2022-04-07 06:29 | NUR ---
HGB HGB 7.1 THIS AM, DR. ROB CALLED AND NOTIFIED. RECEIVED ORDER FOR A REPEAT H&H AND FOLLOW UP WITH DR. CARVAJAL WITH RESULTS LATER THIS MORNING. DR. ROB ALSO NOTIFIED OF CONTINUED HYPOTENSION NO ADDITIONAL ORDERS GIVEN FOR BLOOD PRESSURE.
[2022-04-07 07:35] LABS: Hematocrit 21.8 % (33.0-51.0)
--- NOTE | 2022-04-07 14:55 | NUR ---
CARE ASSUMED OF PT AT THIS TIME. PT IS SITTING UP IN HER RECLINER CHAIR TALKING WITH RENETTA FRAUSTO FROM DISCHARGE PLANNING AT THIS TIME.
--- NOTE | 2022-04-07 16:50 | NUR ---
20G FIELD START IV REMOVED FROM R AC. IV WAS LEAKING.
--- NOTE | 2022-04-08 04:32 | NUR ---
BEAN SORTER SUMMARY POD 1 FOR A L HIP PINNING. GAUZE WITH FOAM TAPE OVER SURGICAL SITES X2 C/D/I. PT ABLE TO AMBULATE WITH A 1 ASSIST USING FWW. PT HAD BEEN REPORTING SOME NEW L ANKLE PAIN THAT STARTED ON DAY SHIFT, 3V ANKLE XR PERFORMED, RESULTS PENDING. PAIN HAS BEEN CONTROLLED WITH PO PAIN MEDS. VSS, WILL CONTINUE TO MONITOR.
[2022-04-08 10:01] LABS: BASOPHILS ABSOLUTE AUTO 0.01 K/mm3 (0.00-0.23); BASOPHILS PERCENT AUTO 0 % (0-2); EOSINOPHILS PERCENT AUTO 0 % (0-6); Hematocrit 24.3 % (33.0-51.0); IMMATURE GRAN ABSOLUTE AUTO 0.06 K/mm3 (0.00-0.10); IMMATURE GRAN PERCENT AUTO 1 % (0-1); LYMPHOCYTES ABSOLUTE AUTO 1.21 K/mm3 (0.84-5.20); LYMPHOCYTES PERCENT AUTO 10 % (21-46); MONOCYTES PERCENT AUTO 8 % (4-13); Mean Corpuscular HGB Conc 32.9 g/dL (31.5-36.5); Mean Corpuscular Volume 82 fL (80-100); NEUTROPHILS ABSOLUTE AUTO 9.74 K/mm3 (1.96-9.15); NEUTROPHILS PERCENT AUTO 82 % (41-73); Platelet Count 79 K/mm3 (150-400); RDW Coefficient Variation 18.9 % (11.7-14.2); RDW Standard Deviation 56.3 fL (35.1-46.3); Red Blood Cell Count 2.96 M/mm3 (3.80-5.20); White Blood Cell Count 11.92 K/mm3 (4.00-11.30)
[2022-04-08 10:04] LABS: Mean Platelet Volume 11.4 fL (9.1-12.4)
[2022-04-08 10:16] LABS: Albumin, Blood 1.9 g/dL (3.4-5.0); Albumin/Globulin Ratio 0.9 (0.8-1.8); Bilirubin, Total 3.4 mg/dL (0.1-1.0); Bun/Creatinine Ratio 35.2 (12.0-20.0); Calcium, Blood 8.1 mg/dL (8.5-10.1); Creatinine, Blood 0.97 mg/dL (0.40-1.00); Globulin, Blood 2.2 g/dL (2.2-4.0); Total Protein, Blood 4.1 g/dL (6.4-8.2)
[2022-04-08] MEDS ORDERED: TORSE20 PO (14:15)
[2022-04-08] MEDS ORDERED: Percocet 5-3251 EACH PO (14:17)
--- NOTE | 2022-04-08 15:52 | NUR ---
DISCHARGE NOTE: PATIENT WAS EDUCATED ON DISCHARGE INSTRUCTIONS. SHE VERBALIZED UNDERSTANDING OF INSTRUCTIONS AND HAD NO FURTHER QUESTIONS AT THIS TIME. PAIN IS MANAGED WITH ORAL PAIN MEDICATIONS. HER LEFT HIP HAS FOAM AND GAUZE THAT ARE C/D/I. DENIES NUMBNESS OR TINGLING. SHE IS A SBA WITH FWW AND GAIT BELT. PATIENT IS TOLERATING PO INTAKE AND IS VOIDING/PASSING GAS. PATIENT IS GATHERING HER PERSONAL ITEMS IN THE ROOM AND IS GETTING DRESSED. PATIENT WILL BE WHEELCHAIRED OUT TO HER HUSBANDS CAR AND TAKEN HOME. HER HARD PERSCRIPTION IS IN HER INSTRUCTIONS FOLDER WITH HER.
--- NOTE | 2022-04-08 16:44 | NUR ---
PATIENT IS BEING WHEELCHAIRED DOWN TO HER HUSBANDS CAR TO BE TAKEN HOME. SHE HAS HER PERSONAL ITEMS GATHERED AND IS DRESSED.
== END 2022-04-08 16:45 | disposition home health service (06) | DRG 480 ==
LOC: ER 19:41 → ERHOLD 04-06 00:17 → SURS 04-06 00:17
PROVIDERS: Family Medicine; Hospitalist; Orthopaedic Surgery; Student in an Organized Health Care Education/Training Program; ADMIT Family Medicine
PROC: 30233N1 Transfusion of Nonautologous Red Blood Cells into Peripheral Vein, Percutaneous Approach (ICD-10-PCS; 2022-04-05)
PROC: 0QH706Z Insertion of Intramedullary Internal Fixation Device into Left Upper Femur, Open Approach (ICD-10-PCS; principal; 2022-04-06 16:00)
DX: S72.142A Displaced intertrochanteric fracture of left femur, initial encounter for closed fracture (principal); K31.811 Angiodysplasia of stomach and duodenum with bleeding; D61.818 Other pancytopenia; S32.018A Other fracture of first lumbar vertebra, initial encounter for closed fracture; E87.1 Hypo-osmolality and hyponatremia; N17.9 Acute kidney failure, unspecified; I27.20 Pulmonary hypertension, unspecified; M85.80 Other specified disorders of bone density and structure, unspecified site; E78.5 Hyperlipidemia, unspecified; Z66 Do not resuscitate; K74.3 Primary biliary cirrhosis; R16.1 Splenomegaly, not elsewhere classified; I50.813 Acute on chronic right heart failure; I11.0 Hypertensive heart disease with heart failure; K21.9 Gastro-esophageal reflux disease without esophagitis; D50.0 Iron deficiency anemia secondary to blood loss (chronic); I95.1 Orthostatic hypotension; W01.0XXA Fall on same level from slipping, tripping and stumbling without subsequent striking against object, initial encounter; Z79.899 Other long term (current) drug therapy; Z87.19 Personal history of other diseases of the digestive system; Z79.01 Long term (current) use of anticoagulants; Z98.890 Other specified postprocedural states; Z98.51 Tubal ligation status; Z90.710 Acquired absence of both cervix and uterus; Z90.49 Acquired absence of other specified parts of digestive tract
CPT/HCPCS: 36415; 36430; 51702; 73502; 73610; 74177; 80053; 82607; 82728; 82746; 83540; 83550; 83735; 84100; 85014; 85018; 85025; 85610; 85730; 86850; 86900; 86901; 86902; 86922; 93005; 93010; 94760; 96374-59; 96375-59; 97110; 97116; 97162; 97166; 97530; 97535; 99285-25; A9270; C1713; J0690; J1100; J1170; J2250; J2405; J2704; J2795; J3010; J7030; J7050; J7120; P9016; Q9967

== ENCOUNTER 2022-04-27 21:00 | Emergency (ER) | payer OTHER, MEDICARE ==
[~2022-04-27] VITALS: Ht 165.1 cm; Wt 63.0 kg
[~2022-04-27 21:00] MED LIST changes: +BENADRYL25 MG PO; +Percocet 5-3251 EACH PO; +TORS10; +TORSE20 PO
[2022-04-27] MEDS ORDERED: ZINC15 PO (21:19)
[2022-04-27] MEDS ORDERED: SPIR25 (21:19)
[2022-04-27 21:34] LABS: BASOPHILS ABSOLUTE AUTO 0.03 K/mm3 (0.00-0.23); BASOPHILS PERCENT AUTO 1 % (0-2); EOSINOPHILS ABSOLUTE AUTO 0.21 K/mm3 (0.00-0.68); EOSINOPHILS PERCENT AUTO 5 % (0-6); Hematocrit 31.6 % (33.0-51.0); Hemoglobin 9.6 g/dL (11.5-16.0); IMMATURE GRAN ABSOLUTE AUTO 0.01 K/mm3 (0.00-0.10); IMMATURE GRAN PERCENT AUTO 0 % (0-1); LYMPHOCYTES ABSOLUTE AUTO 0.86 K/mm3 (0.84-5.20); LYMPHOCYTES PERCENT AUTO 22 % (21-46); MONOCYTES ABSOLUTE AUTO 0.47 K/mm3 (0.16-1.47); MONOCYTES PERCENT AUTO 12 % (4-13); Mean Corpuscular HGB 27.7 pg (26.0-34.0); Mean Corpuscular HGB Conc 30.4 g/dL (31.5-36.5); Mean Corpuscular Volume 91 fL (80-100); Mean Platelet Volume 11.3 fL (9.1-12.4); NEUTROPHILS ABSOLUTE AUTO 2.34 K/mm3 (1.96-9.15); NEUTROPHILS PERCENT AUTO 60 % (41-73); Platelet Count 107 K/mm3 (150-400); RDW Coefficient Variation 24.9 % (11.7-14.2); RDW Standard Deviation 81.2 fL (35.1-46.3); Red Blood Cell Count 3.47 M/mm3 (3.80-5.20); White Blood Cell Count 3.92 K/mm3 (4.00-11.30)
[2022-04-27 21:45] LABS: Albumin, Blood 2.1 g/dL (3.4-5.0); Albumin/Globulin Ratio 0.8 (0.8-1.8); Bilirubin, Total 4.8 mg/dL (0.1-1.0); Bun/Creatinine Ratio 17.5 (12.0-20.0); Calcium, Blood 8.1 mg/dL (8.5-10.1); Creatinine, Blood 0.8 mg/dL (0.40-1.00); Globulin, Blood 2.8 g/dL (2.2-4.0); Magnesium, Blood 2.1 mg/dL (1.6-2.4); Potassium, Blood 2.8 mmol/L (3.5-5.5); Total Protein, Blood 4.9 g/dL (6.4-8.2)
[2022-04-28 01:11] LABS: Bun/Creatinine Ratio 19.6 (12.0-20.0); Calcium, Blood 6.8 mg/dL (8.5-10.1); Creatinine, Blood 0.66 mg/dL (0.40-1.00); Potassium, Blood 2.7 mmol/L (3.5-5.5)
[2022-04-28] MEDS ORDERED: SPIR50 PO (01:16)
[2022-04-28] MEDS ORDERED: POTA20PAC PO (01:16)
[2022-04-28 06:34] LABS: Bun/Creatinine Ratio 19.6 (12.0-20.0); Calcium, Blood 6.7 mg/dL (8.5-10.1); Creatinine, Blood 0.61 mg/dL (0.40-1.00); Potassium, Blood 3.2 mmol/L (3.5-5.5)
== END 2022-04-28 07:01 | disposition home or self-care (01) ==
LOC: ER 21:00
PROVIDERS: Emergency Medicine; Student in an Organized Health Care Education/Training Program
DX: E87.6 Hypokalemia (principal); E55.9 Vitamin D deficiency, unspecified; E78.5 Hyperlipidemia, unspecified; Z79.899 Other long term (current) drug therapy
CPT/HCPCS: 36415; 80048; 80053; 83735; 85025; 93005; 93010; 96365; 96366; 99285-25; A9270; J3480; J7030; J7050

== ENCOUNTER 2022-08-03 14:57 | Inpatient (IN) | payer OTHER, MEDICARE ==
[~2022-08-03] VITALS: Ht 165.1 cm; Wt 69.5 kg
[~2022-08-03 14:57] MED LIST changes: +POTA20PAC PO; +ZINC15 PO
[2022-08-03 16:09] LABS: BASOPHILS ABSOLUTE AUTO 0.02 K/mm3 (0.00-0.23); BASOPHILS PERCENT AUTO 0 % (0-2); EOSINOPHILS ABSOLUTE AUTO 0.12 K/mm3 (0.00-0.68); EOSINOPHILS PERCENT AUTO 3 % (0-6); Hematocrit 18.1 % (33.0-51.0); IMMATURE GRAN PERCENT AUTO 0 % (0-1); LYMPHOCYTES ABSOLUTE AUTO 0.91 K/mm3 (0.84-5.20); LYMPHOCYTES PERCENT AUTO 20 % (21-46); MONOCYTES ABSOLUTE AUTO 0.61 K/mm3 (0.16-1.47); MONOCYTES PERCENT AUTO 13 % (4-13); Mean Corpuscular HGB 24.8 pg (26.0-34.0); Mean Corpuscular HGB Conc 28.2 g/dL (31.5-36.5); Mean Corpuscular Volume 88 fL (80-100); NEUTROPHILS PERCENT AUTO 64 % (41-73); Platelet Count 72 K/mm3 (150-400); RDW Coefficient Variation 23.1 % (11.7-14.2); Red Blood Cell Count 2.06 M/mm3 (3.80-5.20); White Blood Cell Count 4.66 K/mm3 (4.00-11.30)
[2022-08-03 16:14] LABS: Hemoglobin 5.1 g/dL (11.5-16.0)
[2022-08-03 16:34] LABS: Albumin, Blood 2.1 g/dL (3.4-5.0); Bilirubin, Total 3.7 mg/dL (0.1-1.0); Bun/Creatinine Ratio 22.5 (12.0-20.0); Calcium, Blood 7.8 mg/dL (8.5-10.1); Creatinine, Blood 0.84 mg/dL (0.40-1.00); Globulin, Blood 2.2 g/dL (2.2-4.0); Potassium, Blood 3.6 mmol/L (3.5-5.5); Total Protein, Blood 4.3 g/dL (6.4-8.2)
[2022-08-03 19:18] LABS: International Normalized Ratio 1.45; Prothrombin Time Results 14.9 Sec (9.7-11.5)
[2022-08-03 22:09] VITALS: BP 114/47
--- NOTE | 2022-08-03 23:00 | NUR ---
ADMISSION NOTE PATIENT ARRIVED TO PCU 1 VIA STRETCHER AT 2200. SHE IS ALERT AND ORIENTED X4. ABLE TO AMBULATE WITH A CANE, REQUIRES MINIMAL ASSISTANCE DUE TO RECEIVING BLOOD VIA IV. PATIENT DENIES PAIN. VITAL SIGNS STABLE.
[2022-08-04] VITALS (17 sets, daily range): BP systolic 89–120; BP diastolic 44–69
--- NOTE | 2022-08-04 06:20 | NUR ---
SHIFT SUMMARY PATIENT ALERT AND ORIENTED X4. HAD NO COMPLAINTS OF PAIN OR SHORTNESS OF BREATH. LUNG SOUNDS CLEAR, SPO2 >90% ON ROOM AIR. HEART RATE STABLE, BLOOD PRESSURE HYPOTENSIVE WITH MAP IN LOW TO HIGH 60'S. PATIENT FINISHED THE UNIT OF BLOOD THAT WAS TRANSFUSING UPON ADMIT. SECOND UNIT OF PRBC'S TRANSFUSED WELL. WILL CONTINUE TO MONITOR. CALL LIGHT WITHIN REACH.
[2022-08-04 08:13] LABS: Hematocrit 21.6 % (33.0-51.0); Hemoglobin 6.8 g/dL (11.5-16.0)
[2022-08-04 08:33] LABS: Albumin, Blood 1.7 g/dL (3.4-5.0); Albumin/Globulin Ratio 0.8 (0.8-1.8); Bilirubin, Total 4.2 mg/dL (0.1-1.0); Bun/Creatinine Ratio 28.7 (12.0-20.0); Calcium, Blood 7.1 mg/dL (8.5-10.1); Creatinine, Blood 0.66 mg/dL (0.40-1.00); Potassium, Blood 3.7 mmol/L (3.5-5.5); Total Protein, Blood 3.7 g/dL (6.4-8.2)
[2022-08-04 14:33] LABS: Hemoglobin 8.5 g/dL (11.5-16.0)
--- NOTE | 2022-08-04 15:50 | NUR ---
[facility]
--- NOTE | 2022-08-04 16:10 | NUR ---
History, Chart, Medications and Allergies reviewed before start of procedure.Lungs clear T/O to Auscultation. Pre-Op teaching done. Pt verbalizes understanding. Patient confirms NPO status and agrees with scheduled surgery.
--- NOTE | 2022-08-04 16:55 | NUR ---
08/04/22 4570 Damian Ulrich History, Chart, Medications and Allergies reviewed before start of procedure.MONITOR INTACT WITH CONTINUOUS PULSE OXIMETRY, CONTINUOUS END TITAL CO2, AND INTERMITTENT BLOOD PRESSURE.EKG MONITORED DURING PROCEDURE. O2 VIA N/C INTACT THROUGHOUT SEDATION/PROCEDURE. Bite Block Placed,REMOVED AFTER PROCEDURE. See Anesthesia record/DR RICCI.
--- NOTE | 2022-08-04 17:11 | NUR ---
PT AWAKE.VSS. PT TOLERATED PROCEDURE WELL. NO ACUTE CHANGES WHILE IN THIS RN'S CARE. REPORT GIVEN TO OTHER RN Sloane
--- NOTE | 2022-08-04 17:15 | NUR ---
ARRIVAL TO PCU VERY DROWSY BUT AWAKENS TO VOICE. SLIGHTY SLURRED SPEECH & UNEVEN SMILE. LAUGHS WHEN ASKED TO SMILE. PLEASANT. DENIES ABD PAIN. LUNGS CLEAR. VSS. WILL KEEP NPO UNTIL FULLY ALERT.
--- NOTE | 2022-08-04 17:40 | NUR ---
UPDATE MUCH MORE ALERT. SMILES EVEN & SWALLOWS WELL. CLEAR LQ TRAY GIVEN. CONT's TO SWALLOW W/O DIFF.
--- NOTE | 2022-08-04 18:20 | NUR ---
SHIFT SUMMARY CHEERFUL & HAPPY TODAY. LASIX & AN ADDITIONAL UNIT PRBC COMPLETED. UPPER SCOPE DONE LATE AFTERNOON. POST SCOPE WAS INITIALLY DROWSY BUT QUICKLY BECAME ALERT. TOLERATED CLEAR LQ's SO ADVANCED TO FULL. DENIES N/V OR ABD PAIN. VSS.
[2022-08-04 20:40] LABS: BASOPHILS ABSOLUTE AUTO 0.01 K/mm3 (0.00-0.23); BASOPHILS PERCENT AUTO 0 % (0-2); EOSINOPHILS ABSOLUTE AUTO 0.12 K/mm3 (0.00-0.68); EOSINOPHILS PERCENT AUTO 3 % (0-6); Hematocrit 27.6 % (33.0-51.0); Hemoglobin 8.8 g/dL (11.5-16.0); IMMATURE GRAN ABSOLUTE AUTO 0.01 K/mm3 (0.00-0.10); IMMATURE GRAN PERCENT AUTO 0 % (0-1); LYMPHOCYTES ABSOLUTE AUTO 0.81 K/mm3 (0.84-5.20); LYMPHOCYTES PERCENT AUTO 19 % (21-46); MONOCYTES ABSOLUTE AUTO 0.48 K/mm3 (0.16-1.47); MONOCYTES PERCENT AUTO 11 % (4-13); Mean Corpuscular HGB 27.7 pg (26.0-34.0); Mean Corpuscular HGB Conc 31.9 g/dL (31.5-36.5); Mean Corpuscular Volume 87 fL (80-100); NEUTROPHILS ABSOLUTE AUTO 2.93 K/mm3 (1.96-9.15); NEUTROPHILS PERCENT AUTO 67 % (41-73); Platelet Count 64 K/mm3 (150-400); RDW Coefficient Variation 18.3 % (11.7-14.2); RDW Standard Deviation 57.1 fL (35.1-46.3); Red Blood Cell Count 3.18 M/mm3 (3.80-5.20); White Blood Cell Count 4.36 K/mm3 (4.00-11.30)
--- NOTE | 2022-08-04 22:40 | NUR ---
DISCHARGE SUMMARY PATIENT DISCHARGED AT 2105. SHE IS ALERT AND ORIENTED X4. AT BEDSIDE. PATIENT'S HEMEGLOBIN CAME BACK AT 8.8 WHICH QUALIFIED HER TO BE ABLE TO DISCHARGE IT DID NOT DECREASE AFTER HER LAST BLOOD TRANSFUSION AND EGD. PATIENT AND ESCORTED TO CARE BY FLORENTIN MCCARTHY
== END 2022-08-04 21:11 | disposition home or self-care (01) | DRG 378 ==
LOC: ER 14:57 → PCU 20:35
PROVIDERS: Internal Medicine; Nurse Practitioner Acute Care; Physician Assistant; Student in an Organized Health Care Education/Training Program; ADMIT Student in an Organized Health Care Education/Training Program
PROC: 30233N1 Transfusion of Nonautologous Red Blood Cells into Peripheral Vein, Percutaneous Approach (ICD-10-PCS; 2022-08-03)
PROC: 30233N1 Transfusion of Nonautologous Red Blood Cells into Peripheral Vein, Percutaneous Approach (ICD-10-PCS; 2022-08-04)
PROC: 0W3P8ZZ Control Bleeding in Gastrointestinal Tract, Via Natural or Artificial Opening Endoscopic (ICD-10-PCS; principal; 2022-08-04 16:30)
DX: K31.811 Angiodysplasia of stomach and duodenum with bleeding (principal); D62 Acute posthemorrhagic anemia; I50.32 Chronic diastolic (congestive) heart failure; K76.6 Portal hypertension; W18.39XD Other fall on same level, subsequent encounter; D63.8 Anemia in other chronic diseases classified elsewhere; K31.819 Angiodysplasia of stomach and duodenum without bleeding; D50.9 Iron deficiency anemia, unspecified; I27.20 Pulmonary hypertension, unspecified; Z66 Do not resuscitate; E78.5 Hyperlipidemia, unspecified; M85.80 Other specified disorders of bone density and structure, unspecified site; K31.89 Other diseases of stomach and duodenum; K21.9 Gastro-esophageal reflux disease without esophagitis; I83.90 Asymptomatic varicose veins of unspecified lower extremity; I27.21 Secondary pulmonary arterial hypertension; I95.89 Other hypotension; M81.0 Age-related osteoporosis without current pathological fracture; D69.59 Other secondary thrombocytopenia; S32.000D Wedge compression fracture of unspecified lumbar vertebra, subsequent encounter for fracture with routine healing; K72.10 Chronic hepatic failure without coma; K74.5 Biliary cirrhosis, unspecified; D73.2 Chronic congestive splenomegaly; E55.9 Vitamin D deficiency, unspecified; K74.3 Primary biliary cirrhosis; Z90.710 Acquired absence of both cervix and uterus; Z90.49 Acquired absence of other specified parts of digestive tract; Z98.51 Tubal ligation status; Z98.891 History of uterine scar from previous surgery; Z96.89 Presence of other specified functional implants; Z98.890 Other specified postprocedural states; Z79.01 Long term (current) use of anticoagulants; Z79.899 Other long term (current) drug therapy
CPT/HCPCS: 36415; 36430; 80053; 82272; 83735; 85014; 85018; 85025; 85610; 86850; 86900; 86901; 86902; 86920; 86922; 96374; 99285-25; C9113; J0696; J1940; J2001; J2370; J2405; J2704; J7030; J7120; P9016

== ENCOUNTER 2022-10-11 13:12 | Emergency (ER) | payer OTHER, MEDICARE ==
[~2022-10-11] VITALS: Ht 165.1 cm; Wt 61.2 kg
[2022-10-11 14:17] LABS: BASOPHILS ABSOLUTE AUTO 0.02 K/mm3 (0.00-0.23); BASOPHILS PERCENT AUTO 1 % (0-2); EOSINOPHILS ABSOLUTE AUTO 0.22 K/mm3 (0.00-0.68); EOSINOPHILS PERCENT AUTO 5 % (0-6); Hematocrit 26.8 % (33.0-51.0); Hemoglobin 7.9 g/dL (11.5-16.0); IMMATURE GRAN ABSOLUTE AUTO 0.01 K/mm3 (0.00-0.10); IMMATURE GRAN PERCENT AUTO 0 % (0-1); LYMPHOCYTES ABSOLUTE AUTO 1.06 K/mm3 (0.84-5.20); LYMPHOCYTES PERCENT AUTO 25 % (21-46); MONOCYTES ABSOLUTE AUTO 0.46 K/mm3 (0.16-1.47); MONOCYTES PERCENT AUTO 11 % (4-13); Mean Corpuscular HGB 26.6 pg (26.0-34.0); Mean Corpuscular HGB Conc 29.5 g/dL (31.5-36.5); Mean Corpuscular Volume 90 fL (80-100); NEUTROPHILS ABSOLUTE AUTO 2.45 K/mm3 (1.96-9.15); NEUTROPHILS PERCENT AUTO 58 % (41-73); Platelet Count 90 K/mm3 (150-400); RDW Coefficient Variation 21.3 % (11.7-14.2); RDW Standard Deviation 69.9 fL (35.1-46.3); Red Blood Cell Count 2.97 M/mm3 (3.80-5.20); White Blood Cell Count 4.22 K/mm3 (4.00-11.30)
[2022-10-11 14:29] LABS: Mean Platelet Volume 12.9 fL (9.1-12.4)
[2022-10-11 14:32] LABS: Albumin, Blood 2.4 g/dL (3.4-5.0); Albumin/Globulin Ratio 0.9 (0.8-1.8); Bilirubin, Total 4.2 mg/dL (0.1-1.0); Bun/Creatinine Ratio 17.8 (12.0-20.0); Creatinine, Blood 0.68 mg/dL (0.40-1.00); Globulin, Blood 2.7 g/dL (2.2-4.0); Potassium, Blood 3.3 mmol/L (3.5-5.5); Total Protein, Blood 5.1 g/dL (6.4-8.2)
[2022-10-11 14:37] LABS: U Amphetamine Screen Not Detected; U Barbituate Screen Not Detected; U Benzodiazapine Screen Not Detected; U Buprenorphine Screen Not Detected; U Cannabinoids Screen Not Detected; U Cocaine Screen Not Detected; U Methadone Screen Not Detected; U Methamphetamine Screen Not Detected; U Opiates Screen Not Detected; U Oxycodone Screen Not Detected; U Phencyclidine Screen Not Detected; U Propoxyphene Screen Not Detected
[2022-10-11 14:45] VITALS: BP 101/46
[2022-10-11] MEDS ORDERED: Kristalose20 GM PO (15:30)
== END 2022-10-11 16:05 | disposition home or self-care (01) ==
LOC: ER 13:12
PROVIDERS: Emergency Medicine
DX: G92.8 Other toxic encephalopathy (principal); K71.10 Toxic liver disease with hepatic necrosis, without coma; Z79.899 Other long term (current) drug therapy; E78.5 Hyperlipidemia, unspecified
CPT/HCPCS: 80053; 82140; 85025; 96360; 99285-25; A9270; J7030

== ENCOUNTER 2023-03-22 10:38 | Inpatient (IN) | payer BC, MEDICARE ==
[2023-03-22] VITALS (12 sets, daily range): BP systolic 71–106; BP diastolic 42–59
[~2023-03-22] VITALS: Ht 165.1 cm; Wt 86.8 kg
[~2023-03-22 10:38] MED LIST changes: +Kristalose20 GM PO
[2023-03-22 11:29] LABS: BASOPHILS ABSOLUTE AUTO 0.02 K/mm3 (0.00-0.23); BASOPHILS PERCENT AUTO 0 % (0-2); EOSINOPHILS ABSOLUTE AUTO 0.05 K/mm3 (0.00-0.68); EOSINOPHILS PERCENT AUTO 1 % (0-6); Hematocrit 18.9 % (33.0-51.0); IMMATURE GRAN ABSOLUTE AUTO 0.04 K/mm3 (0.00-0.10); IMMATURE GRAN PERCENT AUTO 1 % (0-1); LYMPHOCYTES ABSOLUTE AUTO 0.53 K/mm3 (0.84-5.20); LYMPHOCYTES PERCENT AUTO 10 % (21-46); MONOCYTES ABSOLUTE AUTO 0.54 K/mm3 (0.16-1.47); MONOCYTES PERCENT AUTO 10 % (4-13); Mean Corpuscular HGB 29.3 pg (26.0-34.0); Mean Corpuscular HGB Conc 30.7 g/dL (31.5-36.5); Mean Corpuscular Volume 96 fL (80-100); Mean Platelet Volume 11.7 fL (9.1-12.4); NEUTROPHILS PERCENT AUTO 78 % (41-73); Platelet Count 63 K/mm3 (150-400); RDW Coefficient Variation 20.8 % (11.7-14.2); RDW Standard Deviation 71.6 fL (35.1-46.3); Red Blood Cell Count 1.98 M/mm3 (3.80-5.20); White Blood Cell Count 5.38 K/mm3 (4.00-11.30)
[2023-03-22 11:33] LABS: Hemoglobin 5.8 g/dL (11.5-16.0)
[2023-03-22 11:52] LABS: Albumin, Blood 1.8 g/dL (3.4-5.0); Albumin/Globulin Ratio 0.8 (0.8-1.8); Bilirubin, Total 5.6 mg/dL (0.1-1.0); Bun/Creatinine Ratio 17.5 (12.0-20.0); Calcium, Blood 7.6 mg/dL (8.5-10.1); Creatinine, Blood 0.86 mg/dL (0.40-1.00); Globulin, Blood 2.2 g/dL (2.2-4.0); Potassium, Blood 3.7 mmol/L (3.5-5.5)
[2023-03-22] MEDS ORDERED: BANOPHEN25 MG PO (16:14)
[2023-03-22] MEDS ORDERED: LACTULOSE PO (16:15)
--- NOTE | 2023-03-22 16:48 | NUR ---
Telephone report from BETTY Gonsales. Pt arriving from the ED to PCU 18 shortly.
[2023-03-23 03:24] VITALS: BP 101/46
[2023-03-23 03:32] LABS: BASOPHILS ABSOLUTE AUTO 0.01 K/mm3 (0.00-0.23); BASOPHILS PERCENT AUTO 0 % (0-2); EOSINOPHILS ABSOLUTE AUTO 0.08 K/mm3 (0.00-0.68); EOSINOPHILS PERCENT AUTO 1 % (0-6); Hematocrit 22.4 % (33.0-51.0); Hemoglobin 7.3 g/dL (11.5-16.0); IMMATURE GRAN ABSOLUTE AUTO 0.02 K/mm3 (0.00-0.10); IMMATURE GRAN PERCENT AUTO 0 % (0-1); LYMPHOCYTES ABSOLUTE AUTO 0.71 K/mm3 (0.84-5.20); LYMPHOCYTES PERCENT AUTO 11 % (21-46); MONOCYTES ABSOLUTE AUTO 0.92 K/mm3 (0.16-1.47); MONOCYTES PERCENT AUTO 14 % (4-13); Mean Corpuscular HGB 29.9 pg (26.0-34.0); Mean Corpuscular HGB Conc 32.6 g/dL (31.5-36.5); Mean Corpuscular Volume 92 fL (80-100); NEUTROPHILS ABSOLUTE AUTO 5.03 K/mm3 (1.96-9.15); NEUTROPHILS PERCENT AUTO 74 % (41-73); Platelet Count 53 K/mm3 (150-400); RDW Coefficient Variation 18.6 % (11.7-14.2); RDW Standard Deviation 61.6 fL (35.1-46.3); Red Blood Cell Count 2.44 M/mm3 (3.80-5.20); White Blood Cell Count 6.77 K/mm3 (4.00-11.30)
[2023-03-23 03:47] LABS: Mean Platelet Volume 13.2 fL (9.1-12.4)
[2023-03-23 03:49] LABS: Prothrombin Time Results 20.2 Sec (9.7-11.5)
[2023-03-23 03:56] LABS: Albumin, Blood 1.5 g/dL (3.4-5.0); Albumin/Globulin Ratio 0.7 (0.8-1.8); Bilirubin, Total 8.3 mg/dL (0.1-1.0); Bun/Creatinine Ratio 18.3 (12.0-20.0); Creatinine, Blood 1.09 mg/dL (0.40-1.00); Globulin, Blood 2.1 g/dL (2.2-4.0); Magnesium, Blood 2.2 mg/dL (1.6-2.4); Phosphorus, Blood 3.5 mg/dL (2.5-4.9); Potassium, Blood 3.8 mmol/L (3.5-5.5); Total Protein, Blood 3.6 g/dL (6.4-8.2)
--- NOTE | 2023-03-23 05:19 | NUR ---
END OF SHIFT NOTE: PT REMAINS PLEASANT, COOPERATIVE W/ ALL CARE. ALERT, ORIENTED X4. ABLE TO CALL APPROPRIATELY AND COMMUNICATE NEEDS W/ STAFF. HR 70-80'S, SINUS ON TELE. SBP 90-100'S FOLLOWING PRBC ADMINISTRATION. DENIES CHEST PAIN/PRESSURE. SPO2 >92% ON RA. CONTINUES TO HAVE PAIN IN R PELVIS AND LLE; MEDICATED W/ OXYCODONE PER EMAR W/ RELIEF. KNEE IMMOBILIZER TO LLE, CT COMPLETED THIS AM. REPOSITIONED PT T/O SHIFT FOR PRESSURE ULCER PREVENTION. PUREWICK IN PLACE FOR COMFORT, DRAINING ORANGE/SUZANNA URINE TO SUCTION. NO BM'S, PM LACTULOSE HELD PER PT REQUEST. NO OTHER NEEDS AT THIS TIME. PT IS SLEEPING IN BED W/ CALL LIGHT IN REACH. WILL REPORT TO ONCOMING RN.
[2023-03-23 08:23] VITALS: BP 104/34
--- NOTE | 2023-03-23 13:38 | NUR ---
PT IS SLEEPING.
[2023-03-23 15:57] VITALS: BP 100/48
--- NOTE | 2023-03-23 16:00 | NUR ---
DR. Carmona, Orthopedist to come and see the patient this afternoon.
[2023-03-23 19:39] VITALS: BP 106/48
[2023-03-24] VITALS: BP 122/41
[2023-03-24 03:03] VITALS: BP 131/54
[2023-03-24 04:54] LABS: BASOPHILS ABSOLUTE AUTO 0.02 K/mm3 (0.00-0.23); BASOPHILS PERCENT AUTO 0 % (0-2); EOSINOPHILS ABSOLUTE AUTO 0.18 K/mm3 (0.00-0.68); EOSINOPHILS PERCENT AUTO 2 % (0-6); Hematocrit 21.2 % (33.0-51.0); IMMATURE GRAN ABSOLUTE AUTO 0.06 K/mm3 (0.00-0.10); IMMATURE GRAN PERCENT AUTO 1 % (0-1); LYMPHOCYTES ABSOLUTE AUTO 0.86 K/mm3 (0.84-5.20); LYMPHOCYTES PERCENT AUTO 10 % (21-46); MONOCYTES ABSOLUTE AUTO 1.13 K/mm3 (0.16-1.47); MONOCYTES PERCENT AUTO 13 % (4-13); Mean Corpuscular HGB 29.8 pg (26.0-34.0); Mean Corpuscular Volume 90 fL (80-100); Mean Platelet Volume 12.1 fL (9.1-12.4); NEUTROPHILS ABSOLUTE AUTO 6.17 K/mm3 (1.96-9.15); NEUTROPHILS PERCENT AUTO 73 % (41-73); NRBC ABSOLUTE 0.03 K/mm3 (0.00-0.02); NRBC Auto 0.4 /100 WBC (0.0-0.2); Platelet Count 54 K/mm3 (150-400); RDW Coefficient Variation 19.1 % (11.7-14.2); RDW Standard Deviation 60.8 fL (35.1-46.3); Red Blood Cell Count 2.35 M/mm3 (3.80-5.20); White Blood Cell Count 8.42 K/mm3 (4.00-11.30)
[2023-03-24 05:11] LABS: Albumin, Blood 1.6 g/dL (3.4-5.0); Anion Gap 7 mmol/L (6-16); Blood Urea Nitrogen 24 mg/dL (8-24); Bun/Creatinine Ratio 24.1 (12.0-20.0); CO2, Blood 23 mmol/L (21-32); Calcium, Blood 7.6 mg/dL (8.5-10.1); Chloride, Blood 104 mmol/L (98-108); Glomerular Filtration Rate 66 (60-); Glucose, Blood 178 mg/dL (70-99); Phosphorus, Blood 4.2 mg/dL (2.5-4.9); Potassium, Blood 4.9 mmol/L (3.5-5.5); Sodium, Blood 134 mmol/L (136-145)
--- NOTE | 2023-03-24 05:19 | NUR ---
END OF SHIFT NOTE: PT REMAINS PLEASANT, COOPERATIVE W/ ALL CARE. ALERT, ORIENTED X4. ABLE TO CALL APPROPRIATELY AND COMMUNICATE NEEDS W/ STAFF. HR 80-100'S, SINUS/SINUS TACH ON TELE. SBP 100-130'S, MAP >60. DENIES CHEST PAIN/PRESSURE. SPO2 >92% ON RA. CONTINUES TO HAVE PAIN IN R PELVIS AND LLE; MEDICATED W/ OXYCODONE PER EMAR W/ RELIEF. KNEE IMMOBILIZER TO LLE. REPOSITIONED PT T/O SHIFT FOR PRESSURE ULCER PREVENTION WHEN AGREEABLE. PUREWICK IN PLACE FOR COMFORT DRAINING SUZANNA URINE TO SUCTION. NO BM'S. NS INFUSING PER EMAR. NO OTHER NEEDS AT THIS TIME. PT IS RESTING IN BED W/ CALL LIGHT WITHIN REACH. WILL REPORT TO ONCOMING RN.
--- NOTE | 2023-03-24 07:29 | NUR ---
ASSUMED CARE: PT RESTING IN BED AT THIS TIME. PARTICIPATES DURING BEDSIDE REPORT BUT DROWSY. NSR ON TELE. ON RA. DENIES NEEDS OR CONCERNS AT THIS TIME.
--- NOTE | 2023-03-24 07:53 | NUR ---
PT CURRENTLY EATING BREAKFAST. ASKED RN TO WAIT FOR VITALS AND ASSESSMENT UNTIL AFTER THAT
--- NOTE | 2023-03-24 08:16 | NUR ---
ot at bedside at this time.
[2023-03-24 09:10] VITALS: BP 106/47
[2023-03-24 11:31] VITALS: BP 110/48
--- NOTE | 2023-03-24 15:00 | NUR ---
CALL TO DR ROB TO MAKE HIM AWARE THAT PT HAD NOT HAD A BM YET THIS SHIFT AND HAS BEEN AWAKE ENOUGH TO TAKE PO LACTULOSE, ALTHOUGH FAMILY STATES SHE IS MORE LETHARGIC TODAY THAN PREVIOUS DAYS. SEE NEW ORDERS.
[2023-03-24 15:53] VITALS: BP 113/59
--- NOTE | 2023-03-24 17:13 | NUR ---
SOA ARCHITECT REPORTED THAT PT HAD BEEN REFUSING LAST TWO REPOSITIONS. WENT TO BEDSIDE TO PERFORM REPOSITION AND NOTED NEW BLISTERS TO LEFT GLUTE THAT WERE NOT PRESENT AT 1030 THIS AM. TAX COMPLIANCE REPRESENTATIVE AWARE, NEW PHOTOS IN CHART. CALL TO DR ROB WHO STATES HE WILL COME LOOK AT PHOTOS. ALSO MADE AWARE THAT PT APPEARS TO HAVE PITTING EDEMA IN LEGS THAT WAS NOT SWOLLEN THIS AM EITHER. AWAITING NEW ORDERS AFTER DR REVIEW OF PHOTOS
--- NOTE | 2023-03-24 18:01 | NUR ---
SHIFT SUMMARY: PT HAS BEEN PAINFUL WITH REPOSITIONING, REFUSED REPOSITIONING TWICE THIS SHIFT. NOTED BLISTERS FORMING AND INCREASED EDEMA IN LEGS. DR ROB CAME TO SPEAK WITH PT AND NEW PLAN IS TO USE FENTANYL FOR REPOSITIONING AND ENEMAS IN HOPE THAT PO NARCOTICS WILL NOT BE NECESSARY. CONFIRMED WITH PT CODE STATUS AND ASKED HER HOW AGRESSIVE SHE WANTS US TO BE WITH TREATMENT. PT CONFIRMED TO STAY THE COURSE AT THIS TIME. WILL ADMINISTER ENEMA WHEN IS MANAGER IS AVAILABLE.
[2023-03-24 19:41] VITALS: BP 125/60
[2023-03-25] VITALS (7 sets, daily range): BP systolic 116–124; BP diastolic 44–56
[2023-03-25 04:36] LABS: BASOPHILS ABSOLUTE AUTO 0.03 K/mm3 (0.00-0.23); BASOPHILS PERCENT AUTO 0 % (0-2); EOSINOPHILS ABSOLUTE AUTO 0.31 K/mm3 (0.00-0.68); EOSINOPHILS PERCENT AUTO 3 % (0-6); Hematocrit 20.7 % (33.0-51.0); Hemoglobin 6.8 g/dL (11.5-16.0); IMMATURE GRAN ABSOLUTE AUTO 0.22 K/mm3 (0.00-0.10); IMMATURE GRAN PERCENT AUTO 2 % (0-1); LYMPHOCYTES PERCENT AUTO 11 % (21-46); MONOCYTES ABSOLUTE AUTO 1.56 K/mm3 (0.16-1.47); MONOCYTES PERCENT AUTO 16 % (4-13); Mean Corpuscular HGB 29.4 pg (26.0-34.0); Mean Corpuscular HGB Conc 32.9 g/dL (31.5-36.5); Mean Corpuscular Volume 90 fL (80-100); Mean Platelet Volume 12.2 fL (9.1-12.4); NEUTROPHILS ABSOLUTE AUTO 6.76 K/mm3 (1.96-9.15); NEUTROPHILS PERCENT AUTO 68 % (41-73); NRBC ABSOLUTE 0.12 K/mm3 (0.00-0.02); NRBC Auto 1.2 /100 WBC (0.0-0.2); Platelet Count 54 K/mm3 (150-400); RDW Coefficient Variation 18.9 % (11.7-14.2); RDW Standard Deviation 58.8 fL (35.1-46.3); Red Blood Cell Count 2.31 M/mm3 (3.80-5.20); White Blood Cell Count 9.98 K/mm3 (4.00-11.30)
[2023-03-25 04:59] LABS: Magnesium, Blood 2.1 mg/dL (1.6-2.4)
[2023-03-25 05:00] LABS: Albumin, Blood 1.7 g/dL (3.4-5.0); Albumin/Globulin Ratio 0.7 (0.8-1.8); Bilirubin, Total 8.4 mg/dL (0.1-1.0); Calcium, Blood 7.6 mg/dL (8.5-10.1); Creatinine, Blood 0.93 mg/dL (0.40-1.00); Globulin, Blood 2.3 g/dL (2.2-4.0); Phosphorus, Blood 4.9 mg/dL (2.5-4.9); Potassium, Blood 4.9 mmol/L (3.5-5.5)
--- NOTE | 2023-03-25 06:28 | NUR ---
SHIFT SUMMARY PATIENT DROWSY BUT WAKES TO VERBAL STIMULI, ABLE TO MAKE NEEDS KNOWN TO STAFF. BP STABLE, NO TELE CHANGES. REMAINED ON RA DURING THE NIGHT WITH SPO2 >90%. PATIENT PAINFUL DURING THE NIGHT, MEDICATED PER EMAR. IMMOBILIZER IN PLACE TO LEFT LOWER EXTREMITY. PATIENT RECEIVED LACTULOSE ENEMA AT END OF PREVIOUS SHIFT WITH XL BOWEL MOVEMENT, PATIENT DECLINING ENEMAS DURING THE NIGHT AND STATED "I JUST WANT TO TAKE THE ORAL LACTULOSE". ABDOMINAL DISTENTION IMPROVING. PUREWICK IN PLACE WITH DARK URINE OUT. NO OTHER CHANGES DURING THE NIGHT, WILL REPORT TO DAY SHIFT RN.
--- NOTE | 2023-03-25 12:38 | NUR ---
REASSESSMENT PT HAS BEEN RESTING IN BED THROUGHOUT THE MORNING. SHE WAKES EASILY TO VOICE, IS FULLY ORIENTED. SHE HAS ONGOING HIP PAIN THAT HAS BEEN MANAGABLE AT REST, BUT SEVERE WITH ANY MOVEMENT. DISCUSSED WITH DR. ROB AND PLAN IS TO TRY TO USE THE FENTANYL TO PREMEDICATE FOR TURNS AND ONLY USE THE OXYCODOEN IF THAT ISN'T CONTROLLING PT'S PAIN BECAUSE PT HAS BEEN DROWSY THIS AM. HER LUNGS ARE CLEAR. SPO2 85% ON RA THIS AM SO PLACED ON 2L/NC UNTIL SHE WAS MORE AWAKE. SHE RECEIVED 1 UNIT PRBC FOLLOWED BY LASIX, PER DR. ROB. BP STABLE. VOIDING WITH ASSISTANCE OF SUE. PICKING AT HER MEALS. NO BM TODAY YET BUT PT TAKING PO LACTULOSE. PT'S SO AT THE BEDSIDE AND HAS BEEN UPDATED.
--- NOTE | 2023-03-25 16:47 | NUR ---
SHIFT SUMMARY PT REMAINS ALERT AND ORIENTED. RESTED IN BED THROUGHOUT THE DAY. SHE WANTED TO REFUSE SOME TURNS TODAY, BUT WAS ABLE TO BE CONVINCED AFTER EDUCATION ON THE IMPORTANCE OF TURNS AND WITH PREMEDICATING FOR THE TURNS. PT STATED THAT THE MEDICATION BEFORE MADE IT A LOT MORE TOLERABLE. SHE GOT 1 UNIT PRBC AND TOLERTED THAT WELL. LUNGS ARE CLEAR, RA-2L/NC DEPENDING ON IF SHE IS DOZING. SR, BP STABLE. VOIDING SUZANNA URINE. PICKED AT HER MEALS, BUT DIRNKS A LOT OF WATER. PT'S SO WAS AT THE BEDSIDE FOR MOST OF THE DAY.
[2023-03-26] VITALS (7 sets, daily range): BP systolic 111–148; BP diastolic 44–91
[2023-03-26 05:21] LABS: Hematocrit 24.2 % (33.0-51.0); Hemoglobin 8.1 g/dL (11.5-16.0); Mean Corpuscular HGB 29.6 pg (26.0-34.0); Mean Corpuscular HGB Conc 33.5 g/dL (31.5-36.5); Mean Corpuscular Volume 88 fL (80-100); NRBC ABSOLUTE 0.31 K/mm3 (0.00-0.02); NRBC Auto 2.3 /100 WBC (0.0-0.2); Platelet Count 54 K/mm3 (150-400); RDW Coefficient Variation 18.5 % (11.7-14.2); RDW Standard Deviation 55.6 fL (35.1-46.3); Red Blood Cell Count 2.74 M/mm3 (3.80-5.20); White Blood Cell Count 13.22 K/mm3 (4.00-11.30)
[2023-03-26 05:30] LABS: Mean Platelet Volume 12.9 fL (9.1-12.4)
[2023-03-26 05:48] LABS: Albumin, Blood 1.7 g/dL (3.4-5.0); Anion Gap 7 mmol/L (6-16); Blood Urea Nitrogen 29 mg/dL (8-24); Bun/Creatinine Ratio 31.2 (12.0-20.0); CO2, Blood 25 mmol/L (21-32); Calcium, Blood 7.7 mg/dL (8.5-10.1); Chloride, Blood 97 mmol/L (98-108); Creatinine, Blood 0.93 mg/dL (0.40-1.00); Glomerular Filtration Rate 72 (60-); Glucose, Blood 177 mg/dL (70-99); Phosphorus, Blood 4.6 mg/dL (2.5-4.9); Potassium, Blood 5.1 mmol/L (3.5-5.5); Sodium, Blood 129 mmol/L (136-145)
[2023-03-26 05:55] LABS: BAND PERCENT MAN 1 % (0-8); BASOPHILS PERCENT MAN 0 % (0-2); EOSINOPHILS ABSOLUTE MAN 0.39 K/mm3 (0.00-0.68); EOSINOPHILS PERCENT MAN 3 % (0-6); LYMPHOCYTES ABSOLUTE MAN 0.26 K/mm3 (0.84-5.20); LYMPHOCYTES PERCENT MAN 2 % (21-46); METAMYELOCYTE ABSOLUTE MAN 0.13 K/mm3 (0.00-0.00); METAMYELOCYTE PERCENT MAN 1 % (0-0); MONOCYTES ABSOLUTE MAN 1.98 K/mm3 (0.16-1.47); MONOCYTES PERCENT MAN 15 % (4-13); MYELOCYTE ABSOLUTE MAN 0.13 K/mm3 (0.00-0.00); MYELOCYTE PERCENT MAN 1 % (0-0); NEUTROPHILS ABSOLUTE MAN 10.31 K/mm3 (1.96-9.15); SEG NEUTROPHILS PERCENT MAN 77 % (41-73); TOTAL CELLS COUNTED 100
--- NOTE | 2023-03-26 06:16 | NUR ---
SHIFT SUMMARY PATIENT DROWSY BUT WAKES EASILY TO VERBAL STIMULI. BP STABLE, TELE READING SR 90s DURING THE NIGHT. PATIENT ON 2L SPO2 WITH SPO2 >90%. MEDICATED PER EMAR FOR PAIN. PATIENT EDUCATED ON IMPORTANCE OF MOVEMENT WHILE IN THE BED. LEFT LEG IN IMMOBILIZER. PATIENT DECLINING TURNS AT TIMES. PUREWICK IN PLACE WITH DARK YELLOW URINE OUT. NO BM THIS SHIFT. PATIENT CONTINUING TO DECLINE LACTULOSE ENEMAS. NO OTHER CHANGES, WILL REPORT TO DAY SHIFT RN.
--- NOTE | 2023-03-26 10:16 | NUR ---
AM UPDATE: ASSUMED CARE OF PT @0715. PT ALERT AND ORIENTED X4, ABLE TO FOLLOW COMMANDS AND MAKE NEEDS KNOWN. STRENGTH WEAK, EQUAL BILATERALLY. MENTATION CLOSELY MONITORED. BP AND HR STABLE. AFEBRILE. SPO2 >93% ON ROOM AIR, RESPIRATIONS EVEN AND UNLABORED AT REST. LUNG SOUNDS CLEAR IN UPPER, DIM IN BASES. RADIAL PULSES STRONG, PEDAL PULSES FAINT. +3 EDEMA NOTED IN BLE. PT WITH OVERALL FATIGUED APPERANCE, QUICKLY FALLS ASLEEP. PT WITH HX OF LIVER FAILURE, SKIN WITH YELLOW TINGED. L. LEG WTH IMMOBLIZER DUE TO RECENT FALL. PT PAINFUL THROUGHOUT, MEDICATED PER EMAR. PT COMPLAINING OF NAUSEA THIS AM, ZOFRAN GIVEN PER EMAR. MD AT BEDSIDE AND UPDATED ON STATUS OF PT. MUTIPLE NEW ORDERS RECIEVED, SEE EMAR. AND SONS AT BEDSIDE, UPDATED ON PT PLAN OF CARE, FAMILY TEARFUL. PT STATES "I DO NOT WANT TO ." REMAINS DNR STATUS. PUREWICK IN PLACE, DRAINING SUZANNA URINE. LAST BM 03/24/23. REPOS Q2 TO MAINTAIN SKIN INTEGRITY. MEPILEX IN PLACE ON COCCYX. FAMILY REMAINS AT BEDSIDE. BED IN LOW, CALL LIGHT IN REACH.
[2023-03-26 12:16] LABS: Albumin, Blood 2.3 g/dL (3.4-5.0); Albumin/Globulin Ratio 1.1 (0.8-1.8); Bilirubin, Total 9.9 mg/dL (0.1-1.0); Bun/Creatinine Ratio 35.2 (12.0-20.0); Creatinine, Blood 0.88 mg/dL (0.40-1.00); Globulin, Blood 2.1 g/dL (2.2-4.0); Potassium, Blood 5.1 mmol/L (3.5-5.5); Total Protein, Blood 4.4 g/dL (6.4-8.2)
--- NOTE | 2023-03-26 17:40 | NUR ---
SHIFT SUMMARY: PT REMAINS ALERT AND ORIENTED X3-4, BP AND HR STABLE, AFEBRILE, SPO2 >96% ON ROOM AIR. RESPIRTIONS EVEN AND UNLABORED. PT WITH NO ACUTE CHANGES SINCE AM ASSESSMENT, SEE CARE ASSUMPTION NOTE. PT REMAINS FATIGUED, SLEPT ON AND OFF MAJORITY OF THE SHIFT. MEDICATED X2 FOR PAIN. REPOS Q2 TO MAINTAIN SKIN INTEGRITY. PUREWICK REMAINS IN PLACE, APPROX 1100 ML OF SUZANNA OUTPUT. NO BM. PO INTAKE REMAINS POOR. AND CHILDREN AT BEDSIDE THROUGHOUT THE DAY, UPDATED ON PT PLAN OF CARE. BED IN LOW, CALL LIGHT IN REACH, WILL REPORT TO ONCOMING RN.
--- NOTE | 2023-03-26 19:45 | NUR ---
ASSUMPTION OF CARE ASSUMED CARE OF PATIENT AT 1900. PATIENT RESTING IN BED WITH EYES CLOSED. OPENS EYES TO VERBAL STIMULI. PATIENT IS MORE DROWSY/LETHARGIC THAN PREVIOUS SHIFT. SOFT SPOKEN BUT FALLS BACK TO SLEEP MID CONVERSATION. BP STABLE, PATIENT ON RA WITH SPO2>90%, TELE READING ST 110s. PATIENT STATING THAT TODAY WAS AN EMOTIONAL DAY FOR HER. PATIENT ALSO STATING THAT SHE DOES NOT WANT TO BE REPOSITIONED SHE IS NOT IN ANY PAIN UNTIL SHE IS MOVED. PATIENT ALSO STATING THAT SHE JUST WANTS TO SLEEP TONIGHT AND DOES NOT WANT TO TAKE ANY NIGHT TIME MEDICATIONS. ENGINE BUILDER UPDATED. BED IN LOW POSITION, CALL LIGHT IN REACH.
[2023-03-27 04:30] VITALS: BP 131/57
[2023-03-27 04:32] LABS: BASOPHILS ABSOLUTE AUTO 0.03 K/mm3 (0.00-0.23); BASOPHILS PERCENT AUTO 0 % (0-2); EOSINOPHILS ABSOLUTE AUTO 0.23 K/mm3 (0.00-0.68); EOSINOPHILS PERCENT AUTO 2 % (0-6); Hematocrit 21.9 % (33.0-51.0); Hemoglobin 7.1 g/dL (11.5-16.0); IMMATURE GRAN ABSOLUTE AUTO 0.65 K/mm3 (0.00-0.10); IMMATURE GRAN PERCENT AUTO 6 % (0-1); LYMPHOCYTES ABSOLUTE AUTO 0.78 K/mm3 (0.84-5.20); LYMPHOCYTES PERCENT AUTO 7 % (21-46); MONOCYTES ABSOLUTE AUTO 1.37 K/mm3 (0.16-1.47); MONOCYTES PERCENT AUTO 13 % (4-13); Mean Corpuscular HGB 29.1 pg (26.0-34.0); Mean Corpuscular HGB Conc 32.4 g/dL (31.5-36.5); Mean Corpuscular Volume 90 fL (80-100); NEUTROPHILS PERCENT AUTO 72 % (41-73); NRBC ABSOLUTE 0.17 K/mm3 (0.00-0.02); NRBC Auto 1.6 /100 WBC (0.0-0.2); RDW Coefficient Variation 18.8 % (11.7-14.2); RDW Standard Deviation 55.3 fL (35.1-46.3); Red Blood Cell Count 2.44 M/mm3 (3.80-5.20); White Blood Cell Count 10.76 K/mm3 (4.00-11.30)
[2023-03-27 04:50] LABS: Platelet Count 39 K/mm3 (150-400)
[2023-03-27 04:52] LABS: Albumin, Blood 2.4 g/dL (3.4-5.0); Albumin/Globulin Ratio 1.3 (0.8-1.8); Bilirubin, Total 9.2 mg/dL (0.1-1.0); Bun/Creatinine Ratio 36.9 (12.0-20.0); Calcium, Blood 7.6 mg/dL (8.5-10.1); Creatinine, Blood 0.89 mg/dL (0.40-1.00); Globulin, Blood 1.8 g/dL (2.2-4.0); Magnesium, Blood 2.3 mg/dL (1.6-2.4); Potassium, Blood 4.5 mmol/L (3.5-5.5); Total Protein, Blood 4.2 g/dL (6.4-8.2)
--- NOTE | 2023-03-27 06:04 | NUR ---
SHIFT SUMMARY PATIENT VERY DROWSY THIS SHIFT BUT WAKES TO VERBAL STIMULI. PATIENT REFUSING MEDICATIONS AND TURNS REGARDLESS OF OFFERING PAIN MEDICATION PRIOR TO MOVEMENT. PATIENT SLEPT FOR ENTIRE SHIFT, WAKING ONLY WHILE STAFF IN ROOM. BP STABLE , TELE READING SR-ST DURING THE NIGHT. REMAINED ON RA WITH SPO2 >90%. PUREWICK IN PLACE DRAINING DARK YELLOW URINE. IMMOBILIZER TO LEFT LOWER EXTREMITY. NO OTHER CHANGES SINCE PREVIOUS NOTE. WILL REPORT TO DAY SHIFT RN.
[2023-03-27 07:01] LABS: BAND PERCENT MAN 4 % (0-8); BASOPHILS PERCENT MAN 0 % (0-2); EOSINOPHILS PERCENT MAN 0 % (0-6); LYMPHOCYTES PERCENT MAN 1 % (21-46); METAMYELOCYTE PERCENT MAN 1 % (0-0); MONOCYTES PERCENT MAN 14 % (4-13); MYELOCYTE ABSOLUTE MAN 0.32 K/mm3 (0.00-0.00); MYELOCYTE PERCENT MAN 3 % (0-0); NEUTROPHILS ABSOLUTE MAN 8.71 K/mm3 (1.96-9.15); SEG NEUTROPHILS PERCENT MAN 77 % (41-73); TOTAL CELLS COUNTED 100
--- NOTE | 2023-03-27 09:53 | NUR ---
AM NOTE Pt transitioned to comfort care this am. Pt refusing medications this am. Pt responds to verbal stimuli, oriented x3-4, quickly falling back to sleep when no stimuli. Pt reports pain to hip/leg, will medicate per emar. Pt denies chest pain/pressure, sob, nausea, dizziness and numb/tingling at this time. Breathing even and unlabored, ls clear, dim to bases. Abd firm, nontender, with hypoactive bt t/o. Edema noted to BLE and generalized. Tele removed for comfort care status. Will continue to monitor.
--- NOTE | 2023-03-27 12:55 | NUR ---
Pt rolled several times for BM, pt reporting increased pain, medicated with roxinol. No other acute changes. Will continue to monitor.
--- NOTE | 2023-03-27 18:22 | NUR ---
Shift Summary No other acute changes noted. Pt appears comfortable and sleeping intermittent. Continues to wake to verbal stimuli but falls asleeps quickly. Pt continues to refuse repsitioning. Will continue to monitor. Family/friend at bedside for majority of shift. Spouse educated on comfort measures and educated on end of life.
--- NOTE | 2023-03-28 06:09 | NUR ---
COMFORT CARE - MED NO TELE STATUS PATIENT DROWSY BUT WAKES TO VERBAL STIMULI, CONTINUES TO ANSWER QUESTIONS APPROPRIATELY. PATIENT DECLINED REPOSITIONING DURING THE NIGHT. DENIED CHEST PAIN, SOB, NAUSEA, AND PAIN. PUREWICK IN PLACE. NO OTHER CHANGES DURING THE NIGHT. WILL REPORT TO DAY SHIFT RN.
--- NOTE | 2023-03-28 16:06 | NUR ---
MET WITH JASMIN, HER AND HER SON. FAMILY WAS CONCERNED ABOUT TAKING JASMIN HOME. THEY WERE WORRIED ABOUT CAUSING HER PAIN WHEN THEY NEEDED TO MOVE HER. WE DISCUSSED WHAT HOSPICE WOULD PROVIDE AND THE SUPPORT THEY WOULD BE PROVIDED TO THE FAMILY. WE DISCUSSED THE EQUIPMENT THAT HOSPICE WOULD PROVIDE. PAIN MANAGMENT WAS ADDRESSED. CASE MANAGMENT WAS PRESENT AT THE END OF THE DISCUSSON. WE SPOKE ABOUT THE POSIBILITY OF SENDING FAMILY HOME WITH A PUREWIC OR HARRIS. SHE ALSO DISCUSSED THE PROCESS OF HOSPICE.
--- NOTE | 2023-03-28 17:23 | NUR ---
SHIFT SUMMARY: PT REMAINS COMFORT CARE. MEDICATED X1 FOR PAIN. DECLINED REPOSITIONING MOST OF SHIFT. FAMILY AT BEDSIDE AND SPOKE WITH DC PLANNING AND PALLIATIVE CARE. PLANS FOR DC HOME ON HOSPICE ON MONDAY. NO ACUTE NEEDS OR CONCERNS AT THIS TIME.
--- NOTE | 2023-03-29 00:29 | NUR ---
End of shift/ Transfer note. Pt has been resting well this shift. Pts linens were changed and Pt repositioned at 2100 due to a liquid spill. Pt was painful with movement but was able to relax and rest after repositioned. Pt continues to wake to verbal stimulation and falls right back to sleep. Purwick is functioning, kevon/orange urine. Pt is to be moved to Medical Floor. Mike was notified that Pt was going to be transferred. All belonging to be moved with Pt.
--- NOTE | 2023-03-29 01:14 | NUR ---
ASSUMED CARE ASSUMED CARE OF PT AT 0045. PT IS TRANSFERING TO MEDICAL FLOOR. AWAITING FOR MED RN WHO IS BUSY WITH ANOTHER TRANSFER.
--- NOTE | 2023-03-29 01:44 | NUR ---
TRANSFER NOTE PT ARRIVED FROM PCU. COMFORT CARE. DENIES PAIN. JAUNDICED AND SKIN WARM. HOB ELEVATED, ON ROOM AIR. CALL LIGHT IN REACH. RAILS UP X 3 FOR SAFETY. WILL CONTINUE TO MONITOR
--- NOTE | 2023-03-29 04:20 | NUR ---
PBX OPERATOR SUMMARY PT TRANSFERRED FROM PCU ON COMFORT CARE. PT REPORTEDLY REFUSING MEDS, ETC. NOTE JAUNDICE SKIN AND WARM TO TOUCH WHEN ARRIVE. HOB ELEVATED. RAILS UP X 3 AND CALL LIGHT I NREACH. HAS BEEN RESTING QUIETLY WITH FEW INTERRUTPIONS SINCE ARRIVAL. WILL CONTINUE TO MONITOR
--- NOTE | 2023-03-29 16:55 | NUR ---
SHIFT SUMMARY PATIENT AROUSABLE TO VOICE THIS AM, VERBALIZES YES YES TO EVERYTHING. SHE WAS UNABLE TO FOLLOW INSTRUCTION ON USING STRAW TO DRINK THIS AM SO SWABS LEFT AT BEDSIDE WITH WATER FOR STAFF AND FAMILY TO PROVIDE ORAL CARE. SHE IS GENERALLY RESTING PEACEFULLY, MOANS LIGHTLY WITH REPOSITIONING WHICH HAS BEEN DONE MINIMALLY DUE TO REQUEST. MEDICATED PER EMAR FOR PAIN. FAMILY EDUCATED ON RISKS OF NOT TURNING EVERY 2 HOURS FOR PRESSURE SORE VS PAIN IN PELVIS AND LEG WITH TURNING. VERBALIZES UNDERSTANDING AND REQUESTS ONLY TURNING WITH PERICARE PRN. EDUIN AT BEDSIDE. BED IN LOW POSITION. WILL CONTINUE TO MONITOR.
--- NOTE | 2023-03-30 04:34 | NUR ---
1900: ASSUMED CARE OF PT, REPORT RECEIVED FROM DAY SHIFT RN. PT IS LAYING IN BED ON HER BACK WITH PILLOWS TO OFFSET PRESSURE AREAS. SPOUSE IS AT THE BEDSIDE. PT RESPONDS TO VERBAL OR TOUCH STIMULI. REPEATES ONE WORD, NOT ABLE TO MAKE NEEDS KNOWN. PREMEDICATED FOR TURNING R/T TO PAIN WITH FRACTURES. PUREWICK REPLACED, GUILLERMO CARE PROVIDED. PT REPOSITIONED EVERY 2-3 HOURS DURING THE NIGHT. PT'S FAMILY WOULD LIKE TO MINIMIZE POSITION CHANGES R/T TO PAIN. ORAL CARE COMPLETED DURING CARES, PT TOLERATED WELL. BRACE IN PLACE TO LLE. SAFETY MEASURES TAKEN DURING THE NIGHT, PT AND FAMILY NEEDS ADDRESSED.
--- NOTE | 2023-03-30 06:43 | NUR ---
0630: PT RESTING IN BED WITH EYES CLOSED. RR OF 8 BREATHS PER MINUTE. NO S/S OF DISTRESS OR DISCOMFORT AT THIS TIME. SPOUSE AT THE BEDSIDE.
--- NOTE | 2023-03-30 10:22 | NUR ---
Symptom Management prior to discharge home with hospice. Met with spouse Mike outside of room while food and beverage director in the room placing smallwood catheter for comfort. Primary RN premedicated prior to smallwood placement. This PC RN discussed with Primary RN premedicating prior to transport. Per conversation with Amanda [facility] pt will be starting on 12 mcg Fentanyl patch prior to d/c home. Pt has been receiving IV fentanyl and roxanol for pain managment while in the hospital. Phone call made to [facility] for spouse to inquire on Rx availablility. Hospice Rx's will be ready apx 1200. Spouse notified. [facility] private duty rn, Lesly joined this visit with Mike and this RN to start pt admission process. This PC RN provided pink book and blue book to spouse for review. Offered transfer machine operator services, spouse graciously accepted offer of gerald. Adolph Avitia notified.
[2023-03-30] MEDS ORDERED: Acetaminophen650 M1 PO (11:25)
[2023-03-30] MEDS ORDERED: ATROPINE SULFATE2 M1 SL (11:26)
[2023-03-30] MEDS ORDERED: FENTANYL1 EA14 TOP (11:26)
[2023-03-30] MEDS ORDERED: ACET120S PO (11:26)
[2023-03-30] MEDS ORDERED: MORP20L SL (11:27)
[2023-03-30] MEDS ORDERED: Ativan1 MG PO (11:27)
--- NOTE | 2023-03-30 11:40 | NUR ---
Spiritual care visit conducted. Patient is lying in bed and alert. Brother and son are bedside. I conduct a life review and learn about her amazing characteristics, her long Sikhism anaid history, her strong family support and deep [facility] connections. Pt is awake and oriented but very weak and easily slips into sleep. She tells me that she is holding up well and is thankful for all the love and support. She talks about her anaid and anticipation of heaven and her gratitude for being able to d/c today. She welcomes prayer and engages well during the prayer. She states a strong, "Amen" at the conclusion of the prayer and voices appreciation for the visit. I provide therapeutic listening, theological insights, anticipatory grief support and prayer. Patient and family responded well and showed signs of being comforted.
== END 2023-03-30 11:50 | disposition hospice, home (50) | DRG 543 ==
LOC: ER 10:38 → PCU 10:39 → MEDS 03-29 01:36 → PCU 03-29 01:36 → MEDS 03-30 11:50
PROVIDERS: Emergency Medicine; ADMIT Family Medicine
DX: M80.062A Age-related osteoporosis with current pathological fracture, left lower leg, initial encounter for fracture (principal); D61.818 Other pancytopenia; D62 Acute posthemorrhagic anemia; E87.1 Hypo-osmolality and hyponatremia; S32.119A Unspecified Zone I fracture of sacrum, initial encounter for closed fracture; M80.08XA Age-related osteoporosis with current pathological fracture, vertebra(e), initial encounter for fracture; M80.0AXA Age-related osteoporosis with current pathological fracture, other site, initial encounter for fracture; Z51.5 Encounter for palliative care; W18.30XA Fall on same level, unspecified, initial encounter; K74.60 Unspecified cirrhosis of liver; Z66 Do not resuscitate; I10 Essential (primary) hypertension; D50.9 Iron deficiency anemia, unspecified; E78.5 Hyperlipidemia, unspecified; Z79.899 Other long term (current) drug therapy; I27.20 Pulmonary hypertension, unspecified; K74.3 Primary biliary cirrhosis; E88.09 Other disorders of plasma-protein metabolism, not elsewhere classified
CPT/HCPCS: 29505; 36415; 36430; 72193; 73502; 73562-LT; 73700; 80053; 80069; 82140; 83735; 84100; 85025; 85610; 86850; 86900; 86901; 86902; 86920; 93005; 93010; 94760; 96374; 96375; 96376; 97110; 97162; 97166; 97530; 99285-25; A9270; G0378; J1940; J2405; J2765; J3010; J7030; J7050; P9016; P9047; Q9967